=== PATIENT | female | born 1935 | race African-American/Black ===

== ENCOUNTER 2020-05-29 13:18 | Observation (INO) | payer OTHER ==
[2020-05-29 13:32] VITALS: BMI 39.1
--- NOTE | 2020-05-29 13:45 | PDOC ---
History of Present Illness - General Chief Complaint: Irregular Heart Beat Stated Complaint: Irregular Heart Beat Time Seen by Provider: 05/29/20 13:44 History Source: Patient Exam Limitations: No Limitations - History of Present Illness Initial Comments: 05/29/20 13:44 PCP: Mary Jo Cards: None HPI: 84 yo F pmh anemia, CAD, afib (not on AC), GERD, HTN, HLD, colon cancer s/p resection, glaucoma presenting from her EGD following elevated HR with apparent afib while in the OR (similar to 2016 episode of suspected afib). Denies any new symptoms today or symptoms after waking up from anesthesia. Endorses chronic chest pain and right scapular pain that has been diagnosed as arthritis treated with Tylenol at home. Reports years of shortness of breath with exertion / standing up that the family attributed at home to anemia or dehydration. Distance medical stress test pre 2016. Does not follow with cardiology, does not take AC. Patient denies chest pressure, SOB, diaphoresis, fever, chills, cough, abdominal pain, N/V/D/C, melena, hematochezia, dysuria, hematuria. PMHx of: Anemia, CAD, GERD, HTN, Hypercholesterolemia, Colon Ca (s/p resection), Glaucoma. PSHx of: Colon Resection, Cholestectomy, Hysterectomy, L- Rotator Cuff repair, Hemorrhoidectomy, B/L Cataract- (Lens Implants). Past History - Travel History Traveled outside of the country in the last 30 days: No Close contact w/someone who was outside of country & ill: No - Medical History Allergies/Adverse Reactions: Allergies Allergy/AdvReac Type Severity Reaction Status Date / Time CLYDE Inhibitors AdvReac Unknown PT DENIES Verified 05/29/20 10:04 ALLERGY Home Medications: Ambulatory Orders Amlodipine Besylate 10 mg PO DAILY 05/27/20 Hydralazine HCl 50 mg PO DAILY 05/27/20 Iron Carbonyl 65 mg PO DAILY 05/27/20 Pantoprazole Sodium [Protonix -] 20 mg PO DAILY 05/27/20 Prednisolone Acetate/Pf [Prednisolone Acet 1% Eye Drop] 5 ml OP BID 05/27/20 Brinzolamide/Brimonidine Tart [Simbrinza 1%-0.2% Eye Drops] 8 ml OP BID 05/28/20 Anemia: Yes (TAKING IRON) Asthma: No Cancer: Yes (COLON CA s/p resection) Cardiac Disorders: Yes (CAD,ASHD) CVA: No COPD: No CHF: No Dementia: No Diabetes: No GI Disorders: No (COLON POLYPS;COLON CA; ANTRAL ULCER; GERD) Disorders: No HTN: Yes Hypercholesterolemia: No Liver Disease: No Seizures: No Thyroid Disease: No - Surgical History Abdominal Surgery: Yes (COLON RESECTION) Appendectomy: No Cardiac Surgery: No Cholecystectomy: Yes (LAP) Lung Surgery: No Neurologic Surgery: No Orthopedic Surgery: Yes (LEFT ROTATOR CUFF REPAIR, LEFT KNEE REPLACMENET) - Reproductive History Is Patient Now?: No - Psycho-Social/Smoking History Smoking Status: Yes Smoking History: Former smoker Years of Tobacco Use: 15 Have you smoked in the past 12 months: No Number of Cigarettes Smoked Daily: 0 If you are a former smoker, when did you quit?: 1983 Information on smoking cessation initiated: No - Substance Abuse Hx (Audit-C & DAST Scrn) How often the patient has a drink containing alcohol: Never Score: In Men: 4 or > Positive; In Women: 3 or > Positive: 0 Screen Result (Pos requires Nsg. Audit-10AR): Negative In the last yr the pt used illegal drug/Rx for NonMed reason: No Score: Yes response is considered Positive: 0 Screen Result (Positive result requires Nsg. DAST-10): Negative Review of Systems - Review of Systems Able to Perform ROS?: Yes Is the patient limited Citizen Of [place] proficient: Yes Constitutional: No: Chills, Fever, Weakness HEENTM: No: Recent change in vision, Nose Pain, Throat Pain Respiratory: Yes: Shortness of Breath, SOB with Exertion. No: Cough, Wheezing, Productive cough Cardiac (ROS): Yes: Chest Pain. No: Edema, Irregular Heart Rate, Lightheadedness, Palpitations, Syncope, Chest Tightness ABD/GI: No: Constipated, Diarrhea, Nausea, Vomiting : No: Burning, Dysuria, Discharge, Frequency Musculoskeletal: No: Muscle Pain, Muscle Weakness Integumentary: No: Bruising, Pallor, Pruritus, Rash Neurological: No: Headache, Numbness, Tingling, Weakness Psychiatric: No: Stressors, Change in Appetite Endocrine: No: Increased Thirst, Increased Urine, Change in Weight Hematologic/Lymphatic: No: Anemia, Blood Clots, Easy Bleeding All Other Systems: Reviewed and Negative *Physical Exam - Vital Signs Last Vital Signs Temp Pulse Resp BP Pulse Ox 98.4 F 98 H 18 137/75 100 05/29/20 13:18 05/29/20 13:25 05/29/20 13:18 05/29/20 13:18 05/29/20 13:25 - Physical Exam 05/29/20 13:44 Vitals reviewed, AFVSS HR intermittently increases to 130s-140s for several seconds, irregularly irregular, ?pwaves. GEN: Well appearing, appears stated age, NAD, comfortable. AAOx3. HEENT: NCAT, EOMI, PERRL. Sclera anicteric, non-injected. No facial asymmetry. Moist mucous membranes. Normal voice. Trachea midline. CV: Irregularly irregular, rate 90s, S1/S2, no murmurs / rubs / gallops appreciated. LUNG: CTABL, normal work of breathing. No wheezes, rales, rhonchi. No cough. Speaking full sentences. GI: Soft, NTND, +BS, no guarding, no rebound. No masses. EXTREMITIES: 2+ distal pulses. No clubbing / cyanosis. Mild non-pitting edema bilaterally. No gross deformity in any extremity. SKIN: Warm, dry, no rashes appreciated, non-jaundiced. PSYCH: Normal mood and affect. Cooperative and appropriate. NEURO: CN grossly intact. Moving all extremities well. Normal strength and sensation grossly. ED Treatment Course - LABORATORY CBC & Chemistry Diagram: 05/29/20 15:15 05/29/20 15:15 Medical Decision Making - Medical Decision Making 05/29/20 13:45 84 yo F pmh anemia, CAD, afib (not on AC), GERD, HTN, HLD, colon cancer s/p resection, glaucoma presenting from her EGD following elevated HR with apparent afib while in the OR (similar to 2016 episode of suspected afib). History concerning for lost to follow up? 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 Exam notable for irregular HR, non-pitting LE edema bilaterally, otherwise unremarkable. Concerning for afib vs sinus arrhythmia vs SVT vs electrolyte derangement. - CBC, CMP, Cardiac Profile - EKG, CXR - Continuous cardiac monitoring 05/29/20 14:41 EKG 12:25: 95bpm sinus, premature atrial complexes, left axis deviation, no ST changes or concerning morphologies EKG 14:22: 93bpm unchanged from prior - repeated due to run of 130s-140s HR on the monitor with unclear P waves / baseline 05/29/20 16:58 Labs notable for baseline anemia Troponin 0.02 c/w prior Dispo: Tele Obs Discharge - Discharge Information Problems reviewed: Yes Clinical Impression/Diagnosis: Tachycardia, Shortness of breath Chest pain Qualifiers: Chest pain type: other chest pain Qualified Code(s): R07.89 - Other chest pain Condition: Guarded - Admission Yes - Follow up/Referral Referrals: Marsha Yanez MD [Primary Care Provider] - - Patient Discharge Instructions - Post Discharge Activity
--- NOTE | 2020-05-29 14:34 | PDOC ---
Documentation entered by Ivis Garcia SCRIBE, acting as scribe for Yoshi Morales MD. Yoshi Morales MD: This documentation has been prepared by the Jose huston Xhesika, SCRIBE, under my direction and personally reviewed by me in its entirety. I confirm that the documentation accurately reflects all work, treatment, procedures, and medical decision making performed by me. Attending Attestation - Resident Resident Name: Jose C Marie - ED Attending Attestation I have performed the following: I have examined & evaluated the patient, The case was reviewed & discussed with the resident, I agree w/resident's findings & plan, Exceptions are as noted - HPI HPI: 05/29/20 13:55 The patient is an 78 year old female with a significant past medical history of anemia, CAD, GERD, HTN, HLD, colon cancer s/p resection, glaucoma who presents to the ED sent by Dr. Singletary from Endoscopy for possible atrial fibrillation while in the OR. Per Dr. Singletary, pt had just finished EGD when she was found to have an irregular heart rhythm. Patient denies palpitations chest pain, chest pressure, SOB, diaphoresis, fever, chills, cough, abdominal pain, N/V/D. Pt denies any complaints currently but daughter notes that she has had intermittent chest pain and shortness of breath for several months. Pt had similar occurrence in 2016 when she was found to be tachycardic, but no evidence of afib was found on EKG at that time. Allergies: CLYDE Inhibitors PSHx of: Colon Resection, Cholestectomy, Hysterectomy, L- Rotator Cuff repair, Hemorrhoidectomy, B/L Cataract- (Lens Implants). - Physicial Exam PE: 05/29/20 14:37 "GENERAL: Awake, alert, and fully oriented, in no acute distress. HEAD: No signs of trauma EYES: PERRLA, EOMI, sclera anicteric, conjunctiva clear ENT: Auricles normal inspection, hearing grossly normal, nares patent, oropharynx clear without exudates. Moist mucosa NECK: Nontender, no stepoffs, Normal ROM, supple, no lymphadenopathy, JVD, or masses LUNGS: Breath sounds equal, clear to auscultation bilaterally. No wheezes, and no crackles HEART: Regular rate and rhythm, normal S1 and S2, no murmurs, rubs or gallops ABDOMEN: Soft, nontender, normoactive bowel sounds. No guarding, no rebound. No masses EXTREMITIES: Normal range of motion, no edema. No clubbing or cyanosis. No cords, erythema, or tenderness NEUROLOGICAL: Cranial nerves II through XII intact. 5/5 strength and sensation in all extremities, Normal speech, normal gait, normal cerebellar function SKIN: Warm, Dry, normal turgor, no rashes or lesions noted. - Medical Decision Making 05/29/20 14:37 84 F with abnormal heart rhythm today while getting EGD. No complaints at this time but reports intermittent CP/SOB for months. EKG shows sinus arrhythmia with frequent PACs. - Labs, trop, BNP - CXR Discharge - Discharge Information Problems reviewed: Yes Clinical Impression/Diagnosis: Tachycardia, Shortness of breath Chest pain Qualifiers: Chest pain type: other chest pain Qualified Code(s): R07.89 - Other chest pain Condition: Stable Disposition: HOME - Follow up/Referral - Patient Discharge Instructions - Post Discharge Activity
[2020-05-29 15:43] LABS: BASO % 0.5 % (0-2.0); EOS % 0.7 % (0-4.5); HEMATOCRIT 28.1 % (32.4-45.2); LYMPH % 10.5 % (8-40); MCH 26.5 pg (25.7-33.7); MCHC 32.1 g/dl (32.0-36.0); MEAN CELL VOLUME 82.6 fl (80-96); MEAN PLT VOLUME 7.5 fl (7.5-11.1); MONO % 13.1 % (3.8-10.2); NEUT % 75.2 % (42.8-82.8); PLATELET COUNT 337 K/MM3 (134-434); RDW 18.7 % (11.6-15.6); WHITE BLOOD COUNT 9.6 K/mm3 (4.0-10.0)
[2020-05-29 15:50] LABS: INR 1.11 (0.83-1.09); PROTHROMBIN TIME (PATIENT) 13.1 SEC (9.7-13.0)
[2020-05-29 15:52] LABS: ACTIVATED PTT 29.9 SECONDS (25.2-36.5)
[2020-05-29 16:17] LABS: ALK PHOS 95 U/L (45-117); ANION GAP 8 MMOL/L (8-16); BILIRUBIN,TOTAL 0.4 mg/dL (0.2-1); BLOOD UREA NITROGEN 17.1 mg/dL (7-18); CALCIUM 8.2 mg/dL (8.5-10.1); CHLORIDE 113 mmol/L (98-107); CO2 21 mmol/L (21-32); GLUCOSE,RANDOM 85 mg/dL (74-106); POTASSIUM 3.8 mmol/L (3.5-5.1); SGOT/AST 21 U/L (15-37); SGPT/ALT 17 U/L (13-61); SODIUM 142 mmol/L (136-145); TOT PROT 7.7 g/dl (6.4-8.2)
--- NOTE | 2020-05-29 17:55 | HP ---
CHIEF COMPLAINT:elevated HR during procedure PCP:Dr Yanez HISTORY OF PRESENT ILLNESS: 84 y.o female with PMH of HTN HLD ? afib (not on AC) CAD colon ca s/p resection anemia GERD presents to the ED due to elevated HR during endoscopy-.patient was undergoing an endoscopy when her HR was found to be in shavon 130's-140's so the procedure was stopped and she was sent to the ED, a similar episode happened in 2016 where her HR was found to be elevated however she did not have any outpatient cardiac f/u . she also complains of worsening dyspnea on exertion, decreased exercise tolerance and increased leg swelling she denies any fevers/cough symptoms ER course was notable for: (1)HR 90s-100's EKG notable for PACs; ; NSR (2)Hgb 9 (3) Recent Travel: denies PAST MEDICAL HISTORY: see above PAST SURGICAL HISTORY: colon resection; L knee replacement Social History: Smoking:denies Alcohol:denies Drugs: denies Allergies CLYDE Inhibitors Adverse Reaction (Unknown, Verified 05/29/20 10:04) PT DENIES ALLERGY PT DENIES ANY ALLERGY HOME MEDICATIONS: Home Medications Medication Instructions Recorded Amlodipine Besylate 10 mg PO DAILY 05/27/20 Hydralazine HCl 50 mg PO DAILY 05/27/20 Iron Carbonyl 65 mg PO DAILY 05/27/20 Pantoprazole Sodium [Protonix -] 20 mg PO DAILY 05/27/20 Prednisolone Acetate/Pf 5 ml OP BID 05/27/20 [Prednisolone Acet 1% Eye Drop] Brinzolamide/Brimonidine Tart 8 ml OP BID 05/28/20 [Simbrinza 1%-0.2% Eye Drops] REVIEW OF SYSTEMS CONSTITUTIONAL: Absent: fever, chills, diaphoresis, generalized weakness, malaise, loss of appetite, weight change HEENT: Absent: rhinorrhea, nasal congestion, throat pain, throat swelling, difficulty swallowing, mouth swelling, ear pain, eye pain, visual changes CARDIOVASCULAR: Present: palpitations Absent: chest pain, syncope, rregular heart rate, lightheadedness, peripheral edema RESPIRATORY: Absent: cough, shortness of breath, dyspnea with exertion, orthopnea, wheezing, stridor, hemoptysis GASTROINTESTINAL: Absent: abdominal pain, abdominal distension, nausea, vomiting, diarrhea, constipation, melena, hematochezia GENITOURINARY: Absent: dysuria, frequency, urgency, hesitancy, hematuria, flank pain, genital pain MUSCULOSKELETAL: Absent: myalgia, arthralgia, joint swelling, back pain, neck pain SKIN: Absent: rash, itching, pallor HEMATOLOGIC/IMMUNOLOGIC: Absent: easy bleeding, easy bruising, lymphadenopathy, frequent infections ENDOCRINE: Absent: unexplained weight gain, unexplained weight loss, heat intolerance, cold intolerance NEUROLOGIC: Absent: headache, focal weakness or paresthesias, dizziness, unsteady gait, seizure, mental status changes, bladder or bowel incontinence PSYCHIATRIC: Absent: anxiety, depression, suicidal or homicidal ideation, hallucinations. PHYSICAL EXAMINATION Vital Signs - 24 hr 05/29/20 05/29/20 13:18 13:25 Temperature 98.4 F Pulse Rate 98 H 98 H Respiratory 18 Rate Blood Pressure 137/75 O2 Sat by Pulse 100 100 Oximetry (%) GENERAL: Awake, alert, and fully oriented, in no acute distress. EYES: PEERLA ; EOMI; no scleral icterus NECK: no JVD; no lymphadenopathy. LUNGS: CTA B/l no rales, rhonchi or wheezing HEART: slightly tachycardic, regular normal S1 and S2 without murmur, rub or gallop. ABDOMEN: Soft, NT ND +BS in all 4 quadrants MUSCULOSKELETAL: Normal range of motion at all joints. No bony deformities or tenderness. No CVA tenderness. EXTREMITIES: warm; well-perfused no clubbing/cyanosis trace pedal edema b./l NEUROLOGICAL: Cranial nerves II-XII intact. Normal speech. Normal gait. PSYCHIATRIC: Cooperative. Good eye contact. Appropriate mood and affect. SKIN: Warm, dry, normal turgor, no rashes or lesions noted, normal capillary refill. Laboratory Results - last 24 hr 05/29/20 05/29/20 05/29/20 15:15 15:15 15:15 WBC 9.6 RBC 3.40 L Hgb 9.0 L Hct 28.1 L D MCV 82.6 MCH 26.5 D MCHC 32.1 RDW 18.7 H Plt Count 337 D MPV 7.5 D Absolute Neuts (auto) 7.2 Neutrophils % 75.2 Lymphocytes % 10.5 Monocytes % 13.1 H Eosinophils % 0.7 Basophils % 0.5 Nucleated RBC % 0 PT with INR 13.10 H INR 1.11 H PTT (Actin FS) 29.9 Sodium 142 Potassium 3.8 Chloride 113 H Carbon Dioxide 21 Anion Gap 8 BUN 17.1 Creatinine 1.0 Est GFR (CKD-EPI)AfAm 59.08 Est GFR (CKD-EPI)NonAf 50.97 Random Glucose 85 Calcium 8.2 L Total Bilirubin 0.4 AST 21 ALT 17 Alkaline Phosphatase 95 Creatine Kinase 76 Troponin I < 0.02 B-Natriuretic Peptide Total Protein 7.7 Albumin 3.0 L 05/29/20 15:15 WBC RBC Hgb Hct MCV MCH MCHC RDW Plt Count MPV Absolute Neuts (auto) Neutrophils % Lymphocytes % Monocytes % Eosinophils % Basophils % Nucleated RBC % PT with INR INR PTT (Actin FS) Sodium Potassium Chloride Carbon Dioxide Anion Gap BUN Creatinine Est GFR (CKD-EPI)AfAm Est GFR (CKD-EPI)NonAf Random Glucose Calcium Total Bilirubin AST ALT Alkaline Phosphatase Creatine Kinase Troponin I B-Natriuretic Peptide 173.4 Total Protein Albumin ASSESSMENT/PLAN: 84 y.o female with PMH of HTN HLD ? afib (not on AC) CAD colon ca s/p resection anemia GERD presents to the ED due to elevated HR during endoscopy- #? afib patient now in sinus rhythm with HR well controlled in the 80's-90's -cardio consult -will start metoprolol 25 BID -tele monitoring -TSH -echo -will need AC as CHADsVASC is 4; discuss with cardio #HTN will c/w amlodipine -hold hydralazine -start metoprolol 25 BID -monitor hemodynamics #Anemia Hgb on arrival was 9 -known history of anemia on iron pills -daughter says this is around patients baseline -monitor for signs of bleeding #GERD PPI daily f/e/n not on fluids monitor electrolytes soidum diet dispo tele obs dvt ppx: heparin sq Family Medical History Family History: Denies Problem List - Problem (1) Tachycardia Code(s): R00.0 - TACHYCARDIA, UNSPECIFIED (2) Anemia Code(s): D64.9 - ANEMIA, UNSPECIFIED (3) HTN (hypertension) Code(s): I10 - ESSENTIAL (PRIMARY) HYPERTENSION (4) History of colon cancer Code(s): Z85.038 - PERSONAL HISTORY OF MALIGNANT NEOPLASM OF LARGE INTESTINE Visit type - Medication Review Med list reviewed for High Risk Meds patients 65 and older: Yes - Emergency Visit Emergency Visit: Yes ED Registration Date: 05/29/20 Care time: The patient presented to the Emergency Department on the above date and was hospitalized for further evaluation of their emergent condition. - New Patient This patient is new to me today: Yes Date on this admission: 05/29/20 - Critical Care Critical Care patient: No ATTENDING PHYSICIAN STATEMENT I saw and evaluated the patient. I reviewed the resident's note and discussed the case with the resident. I agree with the resident's findings and plan as documented. SUBJECTIVE: OBJECTIVE: ASSESSMENT AND PLAN:
--- NOTE | 2020-05-29 18:07 | PN ---
Teaching Attending Note Name of Resident: Mandie Madsen ATTENDING PHYSICIAN STATEMENT I saw and evaluated the patient. I reviewed the resident's note and discussed the case with the resident. I agree with the resident's findings and plan as documented. SUBJECTIVE: pt seen and examined at bedside, denies current complains OBJECTIVE: Last Vital Signs Temp Pulse Resp BP Pulse Ox 98.4 F 98 H 18 137/75 100 05/29/20 13:18 05/29/20 13:25 05/29/20 13:18 05/29/20 13:18 05/29/20 13:25 GENERAL: Awake, alert, and fully oriented, in no acute distress. HEAD: Normal with no signs of trauma. EYES: Pupils equal, round and reactive to light, sclera anicteric, conjunctiva clear. LUNGS: Breath sounds equal, clear to auscultation bilaterally. No wheezes, and no crackles. No accessory muscle use. HEART: Irregular, normal S1 and S2 ABDOMEN: Soft, nontender, not distended MUSCULOSKELETAL: Normal range of motion at all joints. No bony deformities or tenderness. No CVA tenderness. UPPER EXTREMITIES: 2+ pulses, warm, well-perfused. No cyanosis. No clubbing. No peripheral edema. LOWER EXTREMITIES: 2+ pulses, warm, well-perfused. No calf tenderness. No peripheral edema. NEUROLOGICAL: Cranial nerves II-XII intact. Normal speech. CBCD WBC 9.6 K/mm3 (4.0-10.0) 05/29/20 15:15 RBC 3.40 M/mm3 (3.60-5.2) L 05/29/20 15:15 Hgb 9.0 GM/dL (10.7-15.3) L 05/29/20 15:15 Hct 28.1 % (32.4-45.2) L D 05/29/20 15:15 MCV 82.6 fl (80-96) 05/29/20 15:15 MCHC 32.1 g/dl (32.0-36.0) 05/29/20 15:15 RDW 18.7 % (11.6-15.6) H 05/29/20 15:15 Plt Count 337 K/MM3 (134-434) D 05/29/20 15:15 MPV 7.5 fl (7.5-11.1) D 05/29/20 15:15 CMP Sodium 142 mmol/L (136-145) 05/29/20 15:15 Potassium 3.8 mmol/L (3.5-5.1) 05/29/20 15:15 Chloride 113 mmol/L (98-107) H 05/29/20 15:15 Carbon Dioxide 21 mmol/L (21-32) 05/29/20 15:15 Anion Gap 8 MMOL/L (8-16) 05/29/20 15:15 BUN 17.1 mg/dL (7-18) 05/29/20 15:15 Creatinine 1.0 mg/dL (0.55-1.3) 05/29/20 15:15 Random Glucose 85 mg/dL (74-106) 05/29/20 15:15 Calcium 8.2 mg/dL (8.5-10.1) L 05/29/20 15:15 Total Bilirubin 0.4 mg/dL (0.2-1) 05/29/20 15:15 AST 21 U/L (15-37) 05/29/20 15:15 ALT 17 U/L (13-61) 05/29/20 15:15 Alkaline Phosphatase 95 U/L (45-117) 05/29/20 15:15 Total Protein 7.7 g/dl (6.4-8.2) 05/29/20 15:15 Albumin 3.0 g/dl (3.4-5.0) L 05/29/20 15:15 CARDIAC ENZYMES Creatine Kinase 76 U/L (26-192) 05/29/20 15:15 Troponin I < 0.02 ng/ml (0.00-0.05) 05/29/20 15:15 Home Medications Medication Instructions Recorded Amlodipine Besylate 10 mg PO DAILY 05/27/20 Hydralazine HCl 50 mg PO DAILY 05/27/20 Iron Carbonyl 65 mg PO DAILY 05/27/20 Pantoprazole Sodium [Protonix -] 20 mg PO DAILY 05/27/20 Prednisolone Acetate/Pf 5 ml OP BID 05/27/20 [Prednisolone Acet 1% Eye Drop] Brinzolamide/Brimonidine Tart 8 ml OP BID 05/28/20 [Simbrinza 1%-0.2% Eye Drops] ASSESSMENT AND PLAN: 78 year old lady with Mhx of anemia, CAD, GERD, HTN, HLD, colon cancer s/p resec tion (last colonoscopy reported normal, following with GI), glaucoma, sent from endoscopy suite for presumed Afib with RVR # Tachyarrythmia - resolved, probably aggravated by stress, - started on metoprolol 50mg bid, observation + tele monitor - EKG reviewed, sinus tachy with premature atrial beats, partial RBBB, LVH - reported worsening exertional dyspnea, orthopnea over last period - cardiology consult - TSH - hold hydralazine, c/w amlodipine glaucoma (hold prednisolone drop as it increases eye pressure, c/w simbrinza) HTN HLD GERD h/o colon ca chronic constipation anemia DVT prophylaxis
--- NOTE | 2020-05-29 20:22 | CON.CARD ---
Consult Consult Specialty:: Cardiology Reason for Consultation:: new onset AF - History of Present Illness History of Present Illness: 84 y.o female with PMH of HTN HLD ? afib (not on AC) CAD colon ca s/p resection anemia GERD presents to the ED due to elevated HR during endoscopy-.patient was undergoing an endoscopy when her HR was found to be in shavon 130's-140's so the procedure was stopped and she was sent to the ED, a similar episode happened in 2015 where her HR was found to be elevated however she did not have any outpatient cardiac f/u . - History Source History Provided By: Medical Record - Past Medical History Cardio/Vascular: Yes: CAD (angina in shavon past), HTN Gastrointestinal: Yes: Cancer (colon cancer, underwent colectomy and 6 months chemotherapy 2001), GERD, Peptic Ulcer Disease (Gastric ulcer 2012), Other (SBO 01/13 managed conservatively 02/03) ...: No Musculoskeletal: Yes: Osteoarthritis, Other (Spinal stenosis, sciatica, broken right wrist 01/13) Dermatology: Yes: Other (benign skin lesion excisions) Additional Medical History: Glaucoma - Past Surgical History Past Surgical History: Yes: Cataract Removal, Cholecystectomy (laparoscopic 2001), Colectomy (right hemicolectomy for colon cancer 2001), Colonoscopy, Hysterectomy (TAHBSO for fibroids), Joint Replacement (left TKR), Upper Endoscopy - Alcohol/Substance Use Hx Alcohol Use: No History of Substance Use: reports: None - Smoking History Smoking history: Former smoker Have you smoked in the past 12 months: No Aproximately how many cigarettes per day: 0 If you are a former smoker, when did you quit?: 1983 - Social History Usual Living Arrangement: With Child ADL: Family Assistance Home Medications - Allergies Allergies/Adverse Reactions: Allergies Allergy/AdvReac Type Severity Reaction Status Date / Time CLYDE Inhibitors AdvReac Unknown PT DENIES Verified 05/29/20 10:04 ALLERGY - Home Medications Home Medications: Ambulatory Orders Amlodipine Besylate 10 mg PO DAILY 05/27/20 Iron Carbonyl 65 mg PO DAILY 05/27/20 Pantoprazole Sodium [Protonix -] 20 mg PO DAILY 05/27/20 Prednisolone Acetate/Pf [Prednisolone Acet 1% Eye Drop] 5 ml OP BID 05/27/20 Brinzolamide/Brimonidine Tart [Simbrinza 1%-0.2% Eye Drops] 8 ml OP BID 05/28/20 Family Medical History Family Hx Respiratory Disorders: Father ( COPD age 86) Family Hx Gastrointestinal Disorder: Mother ( age 54 of ruptured appendix) Review of Systems - Review of Systems Constitutional: reports: No Symptoms Eyes: reports: No Symptoms HENT: reports: No Symptoms Neck: reports: No Symptoms Cardiovascular: reports: No Symptoms Gastrointestinal: reports: No Symptoms Genitourinary: reports: No Symptoms Breasts: reports: No Symptoms Reported Musculoskeletal: reports: No Symptoms Integumentary: reports: No Symptoms Neurological: reports: No Symptoms Endocrine: reports: No Symptoms Hematology/Lymphatic: reports: No Symptoms Psychiatric: reports: No Symptoms Vital Signs: Vital Signs Temperature 98.4 F 05/29/20 13:18 Pulse Rate 90 05/29/20 19:31 Respiratory Rate 20 05/29/20 19:31 Blood Pressure 136/72 05/29/20 19:31 O2 Sat by Pulse Oximetry (%) 98 05/29/20 19:31 Constitutional: Yes: Well Nourished, No Distress, Calm Eyes: Yes: WNL, Conjunctiva Clear, EOM Intact HENT: Yes: WNL, Atraumatic, Normocephalic Neck: Yes: WNL, Supple, Trachea Midline Respiratory: Yes: WNL, Regular, CTA Bilaterally Gastrointestinal: Yes: WNL, Normal Bowel Sounds Renal/: Yes: WNL Cardiovascular: Yes: WNL, Regular Rate and Rhythm Musculoskeletal: Yes: WNL Extremities: Yes: WNL Integumentary: Yes: WNL Neurological: Yes: WNL, Alert, Oriented ...Motor Strength: WNL Psychiatric: Yes: WNL, Alert, Oriented - Other Data Labs, Other Data: CBC, BMP 05/29/20 15:15 05/29/20 15:15 INR, PTT INR 1.11 (0.83-1.09) H 05/29/20 15:15 Troponin, BNP 05/29/20 05/29/20 15:15 15:15 Troponin I < 0.02 B-Natriuretic Peptide 173.4 Troponin, BNP 05/29/20 05/29/20 15:15 15:15 Troponin I < 0.02 B-Natriuretic Peptide 173.4 Imaging - Results Chest X-ray: Image Reviewed (no i/e) EKG: Image Reviewed ([facility] pacs) Problem List - Problems (1) Chest pain Code(s): R07.9 - CHEST PAIN, UNSPECIFIED Qualifiers: Chest pain type: other chest pain Qualified Code(s): R07.89 - Other chest pain; R07.8 - Other chest pain (2) Shortness of breath Code(s): R06.02 - SHORTNESS OF BREATH (3) Tachycardia Code(s): R00.0 - TACHYCARDIA, UNSPECIFIED (4) Abrasion of knee, right Code(s): S80.211A - ABRASION, RIGHT KNEE, INITIAL ENCOUNTER (5) Anemia Code(s): D64.9 - ANEMIA, UNSPECIFIED (6) DVT prophylaxis Code(s): GFR6722 - (7) Distal radial fracture Code(s): S52.509A - UNSP FRACTURE OF THE LOWER END OF UNSP RADIUS, INIT (8) Duodenitis Code(s): K29.80 - DUODENITIS WITHOUT BLEEDING (9) Fall Code(s): W19.XXXA - UNSPECIFIED FALL, INITIAL ENCOUNTER (10) GERD (gastroesophageal reflux disease) Code(s): K21.9 - GASTRO-ESOPHAGEAL REFLUX DISEASE WITHOUT ESOPHAGITIS (11) HTN (hypertension) Code(s): I10 - ESSENTIAL (PRIMARY) HYPERTENSION (12) History of colon cancer Code(s): Z85.038 - PERSONAL HISTORY OF MALIGNANT NEOPLASM OF LARGE INTESTINE (13) History of colon polyps Code(s): Z86.010 - PERSONAL HISTORY OF COLONIC POLYPS (14) History of peptic ulcer disease Code(s): Z87.11 - PERSONAL HISTORY OF PEPTIC ULCER DISEASE (15) Hypercholesteremia Code(s): E78.0 - PURE HYPERCHOLESTEROLEMIA * DO NOT USE * (16) Injury Code(s): T14.90 - INJURY, UNSPECIFIED * DO NOT USE * (17) Leg pain Code(s): M79.606 - PAIN IN LEG, UNSPECIFIED (18) Leukoplakia Code(s): VOR6954 - (19) New onset atrial fibrillation Code(s): I48.91 - UNSPECIFIED ATRIAL FIBRILLATION (20) Shingles Code(s): B02.9 - ZOSTER WITHOUT COMPLICATIONS (21) Vesicular lesion Code(s): R23.8 - OTHER SKIN CHANGES Assessment/Plan 84 y.o female with PMH of HTN HLD ? afib (not on AC) CAD colon ca s/p resection anemia GERD presents to the ED due to elevated HR during endoscopy-.patient was undergoing an endoscopy when her HR was found to be in shavon 130's-140's so the procedure was stopped and she was sent to the ED, a similar episode happened in 2016 where her HR was found to be elevated however she did not have any outpatient cardiac f/u . PAF in NSR No evidence of CHF - BNP WNL Plan; Telemetry ECHO serial EKGS DVT PLX ChadsVasc2 score at least 4 - would benefit from AC Would start AC if cleared by GI- occult GI bleed/anemia. At present time AC risks outweighs the benefits. Agree with BB IF EF normal will change Amlodipine to Cardizem.
[2020-05-29] MEDS ORDERED: metoPROLOL SUCCINATE 25 MG TAB.SR.24H (FP) PO SCH (22:00)
[2020-05-29] MEDS ORDERED: METOPROLOL TARTRATE 25 MG TABLET (FP) ONE (22:05)
[2020-05-29] MEDS ORDERED: HEPARIN NA (PORCINE) 5,000 UNITS/ML 1ML VIAL ONE (22:06)
[2020-05-29] MEDS: HEPARIN NA (PORCINE) 5,000 UNITS/ML 1ML VIAL SQ SCH (22:09)
[2020-05-29] MEDS: METOPROLOL TARTRATE 25 MG TABLET (FP) PO SCH (22:09)
[2020-05-30] MEDS: HEPARIN NA (PORCINE) 5,000 UNITS/ML 1ML VIAL SQ SCH ×3 (06:15→22:03)
--- NOTE | 2020-05-30 06:30 | PN ---
Progress Note (short form) - Note Progress Note: Coverage for Dr. Edi Lambert Chief Complaint: Events noted, notes reviewed, resting in bed, reporting vague chest heaviness/discomfort which is not exacerbated by movements or respiration, denies dyspnea, denies palpitations History of Present Illness: Seen and examined on telemetry. Events noted, notes reviewed, resting in bed, reporting vague chest heaviness/discomfort which is not exacerbated by movements or respiration, denies dyspnea, denies palpitations Medications: Current Medications Generic Name Dose Route Start Last Admin Trade Name Freq PRN Reason Stop Dose Admin Amlodipine Besylate 10 mg 05/30/20 10:00 Norvasc - PO DAILY RASHEL Heparin Sodium (Porcine) 5,000 unit 05/29/20 22:00 05/30/20 06:15 Heparin - SQ 5,000 unit TID RASHEL Administration Metoprolol Tartrate 25 mg 05/29/20 22:00 05/29/20 22:09 Lopressor - PO 25 mg BID RASHEL Administration Pantoprazole Sodium 20 mg 05/30/20 10:00 Protonix - PO DAILY COUNTS INCLUDE 234 BEDS AT THE [facility] Review of Systems Constitutional: denies Chills or Fever Respiratory: denies: Dyspnea Cardiovascular: As noted above Gastrointestinal: denies Nausea, Vomiting, Diarrhea, Constipation or Abdominal Discomfort Genitourinary: No Symptoms Reported Musculoskeletal: No Symptoms Reported Vital Signs: Last Vital Signs Temp Pulse Resp BP Pulse Ox 98.5 F 72 18 124/54 L 97 05/30/20 02:00 05/30/20 02:00 05/30/20 02:00 05/30/20 02:00 05/30/20 02:00 Intake & Output 05/27/20 05/28/20 05/29/20 05/30/20 23:59 23:59 23:59 23:59 Weight 250 lb Neck: Supple Negative JVD Respiratory: Clear to A&P Bilaterally Cardiovascular: S1 S2 Irregularly irregular Gastrointestinal: Soft Benign Normal Bowel Sounds Ext: Negative Edema Labs: CBC, BMP 05/30/20 06:15 05/30/20 06:15 CBC, BMP 05/29/20 15:15 05/29/20 15:15 Troponin, BNP 05/29/20 05/29/20 15:15 15:15 Troponin I < 0.02 B-Natriuretic Peptide 173.4 Hepatic Panel Total Bilirubin 0.4 mg/dL (0.2-1) 05/29/20 15:15 AST 21 U/L (15-37) 05/29/20 15:15 ALT 17 U/L (13-61) 05/29/20 15:15 Alkaline Phosphatase 95 U/L (45-117) 05/29/20 15:15 Albumin 3.0 g/dl (3.4-5.0) L 05/29/20 15:15 INR, PTT INR 1.11 (0.83-1.09) H 05/29/20 15:15 Assessment/Plan ASSESSMENT: 1. Paroxysmal atrial fibrillation [id number] score of 6 currently on no anticoagulation therapy related to anemia evaluation of which is currently in progress 2. Coronary artery disease angina pectoris, chest pain syndrome clinically atypical for angina pectoris 3. Diastolic left ventricular dysfunction with clinical class 0 [place] [employer] classification of ventricular failure 4. Hypertensive cardiovascular disease 5. Hypercholesterolemia 6. History of gastroesophageal reflux disease 7. History of colon carcinoma post resection 8. Anemia gastrointestinal blood loss is suspected, evaluation of which is currently in progress PLAN: 1. Continue Lopressor therapy and dose titration as needed 2. Ideally patient should be on CLYDE inhibitor or angiotensin receptor suzy therapy, patient has a history of allergy- to be reviewed 3. Continue Norvasc therapy 4. Ideally patient should be anticoagulated considering the above-noted CH [id number] score of 6, to be deferred at this point pending completion of evaluation of the above-noted anemia- as an alternative to anticoagulation therapy consideration for left atrial appendage closure device insertion 5. If recurrent atrial fibrillation is noted recommend initiation of antiarrhy thmic therapy; Betapace provided LVEF is normal 6. Echocardiography study for evaluation of left ventricular systolic function/valvular function Yolette Sanderson MD
[2020-05-30 08:20] LABS: BASO % 1.8 % (0-2.0); EOS % 2.5 % (0-4.5); HEMATOCRIT 27.3 % (32.4-45.2); HEMOGLOBIN 8.7 GM/dL (10.7-15.3); LYMPH % 17.7 % (8-40); MCH 26.6 pg (25.7-33.7); MCHC 31.8 g/dl (32.0-36.0); MEAN CELL VOLUME 83.6 fl (80-96); MEAN PLT VOLUME 8.6 fl (7.5-11.1); MONO % 14.1 % (3.8-10.2); NEUT % 63.9 % (42.8-82.8); PLATELET COUNT 321 K/MM3 (134-434); RBC 3.27 M/mm3 (3.60-5.2); RDW 18.9 % (11.6-15.6); WHITE BLOOD COUNT 7.6 K/mm3 (4.0-10.0)
[2020-05-30 08:35] LABS: ALBUMIN 2.8 g/dl (3.4-5.0); BILIRUBIN,TOTAL 0.5 mg/dL (0.2-1); BLOOD UREA NITROGEN 17.1 mg/dL (7-18); CALCIUM 8.6 mg/dL (8.5-10.1); MAGNESIUM 2.4 mg/dL (1.8-2.4); PHOSPHOROUS 3.5 mg/dL (2.5-4.9); POTASSIUM 4.4 mmol/L (3.5-5.1); TOT PROT 7.2 g/dl (6.4-8.2)
[2020-05-30] MEDS: METOPROLOL TARTRATE 25 MG TABLET (FP) PO SCH (09:13)
[2020-05-30] MEDS: PANTOPRAZOLE 20 MG TABLET PO SCH (09:13)
[2020-05-30] MEDS: amLODIPine BESYLATE 10 MG TABLET (FP) PO SCH (09:13)
--- NOTE | 2020-05-30 10:16 | EKG ---
Test Reason : Blood Pressure : / mmHG Vent. Rate : 079 BPM Atrial Rate : 079 BPM P-R Int : 178 ms QRS Dur : 094 ms QT Int : 398 ms P-R-T Axes : 082 -30 013 degrees QTc Int : 456 ms SINUS RHYTHM WITH PREMATURE ATRIAL COMPLEXES LEFT AXIS DEVIATION INCOMPLETE RIGHT BUNDLE BRANCH BLOCK MINIMAL VOLTAGE CRITERIA FOR LVH, MAY BE NORMAL VARIANT ABNORMAL ECG WHEN COMPARED WITH ECG OF 29-MAY-2020 14:22, INCOMPLETE RIGHT BUNDLE BRANCH BLOCK IS NOW PRESENT Confirmed by IAM RODRIGUEZ MD ([id number]) on 05/30/2020 10:16:02 AM Referred By: Confirmed By:IAM RODRIGUEZ MD
--- NOTE | 2020-05-30 10:20 | EKG ---
Test Reason : Blood Pressure : / mmHG Vent. Rate : 093 BPM Atrial Rate : 093 BPM P-R Int : 168 ms QRS Dur : 088 ms QT Int : 378 ms P-R-T Axes : 077 -30 020 degrees QTc Int : 469 ms POOR DATA QUALITY, INTERPRETATION MAY BE ADVERSELY AFFECTED SINUS RHYTHM WITH PREMATURE ATRIAL COMPLEXES LEFT AXIS DEVIATION MINIMAL VOLTAGE CRITERIA FOR LVH, MAY BE NORMAL VARIANT ABNORMAL ECG WHEN COMPARED WITH ECG OF 29-MAY-2020 12:25, NO SIGNIFICANT CHANGE WAS FOUND Confirmed by IAM RODRIGUEZ MD ([id number]) on 05/30/2020 10:19:51 AM Referred By: Confirmed By:IAM RODRIGUEZ MD
--- NOTE | 2020-05-30 11:18 | PN ---
Physical Exam: SUBJECTIVE: Patient seen this morning, reports she has been having some midsternal pressure that is relieved with tylenol. No overnight events OBJECTIVE: Vital Signs Period Temp Pulse Resp BP Sys/Jensen Pulse Ox Last 24 Hr 98.4 F-98.5 F 71-98 18-20 124-149/54-82 96-100 GENERAL: The patient is awake, alert, and fully oriented, in no acute distress. HEAD: Normal with no signs of trauma. EYES: PERRL, extraocular movements intact, ENT: moist mucous membranes. LUNGS: Breath sounds equal, clear to auscultation bilaterally, no wheezes, no crackles, no accessory muscle use. HEART: Regular rate and rhythm, S1, S2 without murmur, rub or gallop. ABDOMEN: Soft, nontender, nondistended, normoactive bowel sounds, EXTREMITIES: no edema SKIN: Warm, dry, normal turgor, no rashes or lesions noted CBC, BMP 05/30/20 06:15 05/30/20 06:15 Active Medications Generic Name Dose Route Start Last Admin Trade Name Zaidq PRN Reason Stop Dose Admin Amlodipine Besylate 10 mg 05/30/20 10:00 05/30/20 09:13 Norvasc - PO 10 mg DAILY RASHEL Administration Heparin Sodium (Porcine) 5,000 unit 05/29/20 22:00 05/30/20 06:15 Heparin - SQ 5,000 unit TID RASHEL Administration Metoprolol Tartrate 50 mg 05/30/20 11:07 Lopressor - PO BID RASHEL Pantoprazole Sodium 20 mg 05/30/20 10:00 05/30/20 09:13 Protonix - PO 20 mg DAILY RASHEL Administration ASSESSMENT/PLAN: Patient is a 84 y/o female with a history of HTN HLD ? afib (not on AC) CAD colon ca s/p resection anemia GERD who is admitted for tachycardia. #tachycardia - hx of paroxysmal afib, CHADSC 6, cannot r/o vagal nerve stimulation during patients EGD - cardiology reccomending AC, to be discussed with patients outpatient GI to discuss risks and benefits - metoprolol tartrate 50 mg bid - f/u ECHO on Monday #hx HTN - continue amlodipine 10mg #anemia - patient on iron suplementation at home - f/u iron pannel, vitamin B12, folate #HX GERD - continue pantoprazole 20 mg daily #DVT ppx - heparin sq tid Dispo: f/u ECHO Visit type - Emergency Visit Emergency Visit: No - New Patient This patient is new to me today: Yes Date on this admission: 05/30/20 - Critical Care Critical Care patient: No - Medication Review Med list reviewed for High Risk Meds patients 65 and older: Yes ATTENDING PHYSICIAN STATEMENT I saw and evaluated the patient. I reviewed the resident's note and discussed the case with the resident. I agree with the resident's findings and plan as documented. SUBJECTIVE: OBJECTIVE: ASSESSMENT AND PLAN:
--- NOTE | 2020-05-30 13:47 | PN ---
Teaching Attending Note Name of Resident: Janene Meredith ATTENDING PHYSICIAN STATEMENT I saw and evaluated the patient. I reviewed the resident's note and discussed the case with the resident. I agree with the resident's findings and plan as documented. SUBJECTIVE: Feeling well, no chest discomfort or palpitations currently. No fever/chills/cough/sputum/hemoptysis. OBJECTIVE: Afebrile, Hemodynamically Stable. Last Vital Signs Temp Pulse Resp BP Pulse Ox 98.4 F 77 18 149/82 98 05/30/20 06:00 05/30/20 06:00 05/30/20 06:00 05/30/20 06:00 05/30/20 06:00 HEENT - Atraumatic, normocephalic Heart - S1, S2, RRR Lungs - clear to auscultation Abdomen - High BMI. soft, non-tender. Bowel Sounds normal. Extremities - no edema, no calf tenderness Neuro - AAO x 3. Tone/Power normal. Laboratory Results - last 24 hr 05/29/20 05/29/20 05/29/20 15:15 15:15 15:15 WBC 9.6 RBC 3.40 L Hgb 9.0 L Hct 28.1 L D MCV 82.6 MCH 26.5 D MCHC 32.1 RDW 18.7 H Plt Count 337 D MPV 7.5 D Absolute Neuts (auto) 7.2 Neutrophils % 75.2 Lymphocytes % 10.5 Monocytes % 13.1 H Eosinophils % 0.7 Basophils % 0.5 Nucleated RBC % 0 PT with INR 13.10 H INR 1.11 H PTT (Actin FS) 29.9 Sodium 142 Potassium 3.8 Chloride 113 H Carbon Dioxide 21 Anion Gap 8 BUN 17.1 Creatinine 1.0 Est GFR (CKD-EPI)AfAm 59.08 Est GFR (CKD-EPI)NonAf 50.97 Random Glucose 85 Calcium 8.2 L Phosphorus Magnesium Total Bilirubin 0.4 AST 21 ALT 17 Alkaline Phosphatase 95 Creatine Kinase 76 Troponin I < 0.02 B-Natriuretic Peptide Total Protein 7.7 Albumin 3.0 L TSH 05/29/20 05/30/20 05/30/20 15:15 06:15 06:15 WBC 7.6 RBC 3.27 L Hgb 8.7 L Hct 27.3 L MCV 83.6 MCH 26.6 MCHC 31.8 L RDW 18.9 H Plt Count 321 MPV 8.6 D Absolute Neuts (auto) 4.9 Neutrophils % 63.9 Lymphocytes % 17.7 D Monocytes % 14.1 H Eosinophils % 2.5 D Basophils % 1.8 D Nucleated RBC % 0 PT with INR INR PTT (Actin FS) Sodium 142 Potassium 4.4 Chloride 112 H Carbon Dioxide 26 Anion Gap 5 L BUN 17.1 Creatinine 1.0 Est GFR (CKD-EPI)AfAm 59.08 Est GFR (CKD-EPI)NonAf 50.97 Random Glucose 73 L Calcium 8.6 Phosphorus 3.5 Magnesium 2.4 Total Bilirubin 0.5 AST 22 ALT 16 Alkaline Phosphatase 85 Creatine Kinase Troponin I B-Natriuretic Peptide 173.4 Total Protein 7.2 Albumin 2.8 L TSH 1.47 Current Medications Generic Name Dose Route Start Last Admin Trade Name Freq PRN Reason Stop Dose Admin Amlodipine Besylate 10 mg 05/30/20 10:00 05/30/20 09:13 Norvasc - PO 10 mg DAILY RASHEL Administration Heparin Sodium (Porcine) 5,000 unit 05/29/20 22:00 05/30/20 06:15 Heparin - SQ 5,000 unit TID RASHEL Administration Metoprolol Tartrate 50 mg 05/30/20 11:07 Lopressor - PO BID RASHEL Pantoprazole Sodium 20 mg 05/30/20 10:00 05/30/20 09:13 Protonix - PO 20 mg DAILY RASHEL Administration Home Medications Medication Instructions Recorded Amlodipine Besylate 10 mg PO DAILY 05/27/20 Iron Carbonyl 65 mg PO DAILY 05/27/20 Pantoprazole Sodium [Protonix -] 20 mg PO DAILY 05/27/20 Prednisolone Acetate/Pf 5 ml OP BID 05/27/20 [Prednisolone Acet 1% Eye Drop] Brinzolamide/Brimonidine Tart 8 ml OP BID 05/28/20 [Simbrinza 1%-0.2% Eye Drops] ASSESSMENT AND PLAN: 78 year old female with history of Anemia, CAD, GERD, HTN, HLD, chronic diastolic CHF, colon cancer s/p resection (last colonoscopy reported normal, following with GI), glaucoma, sent from endoscopy suite for tachycardia of 130s- 140s during EGD. 1. Tachyarrythmia secondary to possible vagal nerve stimulation during EGD Questionable Hx of PAF, now in SR. No recorded AF on this occasion. ECG - SR x 2. No acute changes. TropI neg. No telemonitoring events overnight. TSH wnl Metoprolol started. Cardiology consulted - for consideration of AC once anemia work-up is completed by GI (Hx Colon Ca). Echo requested by Cardio - to be done on Friday 06/01 2. HTN - Metoprolol added to Norvasc. 3. GERD - PPI 4. Chronic Anemia, Normocytic - being investigated by GI. On Iron supplementation. Will send Iron/Ferritin/B12/Folate levels. DVT Px - Heparin SQ
[2020-05-30] MEDS: METOPROLOL TARTRATE 50 MG TABLET (FP) PO SCH (22:04)
[2020-05-31] MEDS: HEPARIN NA (PORCINE) 5,000 UNITS/ML 1ML VIAL SQ SCH ×3 (06:14→21:24)
--- NOTE | 2020-05-31 06:26 | PN ---
Progress Note (short form) - Note Progress Note: Coverage for Dr. Edi Lambert Chief Complaint: Events noted, notes reviewed, resting in bed, denies any recurrent chest discomfort, denies dyspnea, denies palpitations, sinus rhythm is maintained History of Present Illness: Seen and examined on telemetry. Events noted, notes reviewed, resting in bed, denies any recurrent chest discomfort, denies dyspnea, denies palpitations, sinus rhythm is maintained Medications: Current Medications Generic Name Dose Route Start Last Admin Trade Name Kathie PRN Reason Stop Dose Admin Amlodipine Besylate 10 mg 05/30/20 10:00 05/30/20 09:13 Norvasc - PO 10 mg DAILY RASHEL Administration Heparin Sodium (Porcine) 5,000 unit 05/29/20 22:00 05/31/20 06:14 Heparin - SQ 5,000 unit TID RASHEL Administration Metoprolol Tartrate 50 mg 05/30/20 11:07 05/30/20 22:04 Lopressor - PO 50 mg BID RASHEL Administration Pantoprazole Sodium 20 mg 05/30/20 10:00 05/30/20 09:13 Protonix - PO 20 mg DAILY RASHEL Administration Review of Systems Constitutional: denies Chills or Fever Respiratory: denies: Dyspnea Cardiovascular: As noted above Gastrointestinal: denies Nausea, Vomiting, Diarrhea, Constipation or Abdominal Discomfort Genitourinary: No Symptoms Reported Musculoskeletal: No Symptoms Reported Vital Signs: Last Vital Signs Temp Pulse Resp BP Pulse Ox 98.2 F 60 18 120/55 L 98 05/31/20 02:00 05/31/20 02:00 05/31/20 02:00 05/31/20 02:00 05/30/20 22:00 Intake & Output 05/28/20 05/29/20 05/30/20 05/31/20 23:59 23:59 23:59 23:59 Intake Total 120 Balance 120 Weight 250 lb Neck: Supple Negative JVD Respiratory: Clear to A&P Bilaterally Cardiovascular: S1 S2 Regular rate rhythm Gastrointestinal: Soft Benign Normal Bowel Sounds Ext: Negative Edema Labs: CBC, BMP 05/31/20 06:45 05/31/20 06:48 CBC, BMP 05/30/20 06:15 05/30/20 06:15 Hepatic Panel Total Bilirubin 0.5 mg/dL (0.2-1) 05/30/20 06:15 AST 22 U/L (15-37) 05/30/20 06:15 ALT 16 U/L (13-61) 05/30/20 06:15 Alkaline Phosphatase 85 U/L (45-117) 05/30/20 06:15 Albumin 2.8 g/dl (3.4-5.0) L 05/30/20 06:15 INR, PTT INR 1.11 (0.83-1.09) H 05/29/20 15:15 Assessment/Plan ASSESSMENT: 1. Paroxysmal atrial fibrillation [id number] score of 6 currently on no anticoagulation therapy related to anemia evaluation of which is currently in progress 2. Coronary artery disease angina pectoris, chest pain syndrome clinically atypical for angina pectoris 3. Diastolic left ventricular dysfunction with clinical class 0 [place] [employer] classification of ventricular failure 4. Hypertensive cardiovascular disease 5. Hypercholesterolemia 6. History of gastroesophageal reflux disease 7. History of colon carcinoma post resection 8. Anemia gastrointestinal blood loss is suspected, evaluation of which is currently in progress PLAN: 1. Continue Lopressor therapy and dose titration as needed 2. Ideally patient should be on CLYDE inhibitor or angiotensin receptor suzy therapy, patient has a history of allergy- to be reviewed 3. Continue Norvasc therapy 4. Ideally patient should be anticoagulated considering the above-noted [id number] score of 6, to be deferred at this point pending completion of evaluation of the above-noted anemia- as an alternative to anticoagulation therapy consideration for left atrial appendage closure device insertion- outpatient evaluation 5. If recurrent atrial fibrillation is noted recommend initiation of antiarrhythmic therapy; Betapace provided LVEF is normal 6. Echocardiography study for evaluation of left ventricular systolic function/valvular function Yolette Sanderson MD
[2020-05-31 08:00] LABS: HEMATOCRIT 28.9 % (32.4-45.2); HEMOGLOBIN 9.1 GM/dL (10.7-15.3); MCH 26.4 pg (25.7-33.7); MCHC 31.5 g/dl (32.0-36.0); MEAN CELL VOLUME 83.6 fl (80-96); MEAN PLT VOLUME 8.4 fl (7.5-11.1); PLATELET COUNT 331 K/MM3 (134-434); RBC 3.46 M/mm3 (3.60-5.2); RDW 19.2 % (11.6-15.6); WHITE BLOOD COUNT 7.9 K/mm3 (4.0-10.0)
[2020-05-31 08:46] LABS: ALBUMIN 2.9 g/dl (3.4-5.0); BILIRUBIN,TOTAL 0.4 mg/dL (0.2-1); BLOOD UREA NITROGEN 16.7 mg/dL (7-18); CALCIUM 8.4 mg/dL (8.5-10.1); CREATININE 1.1 mg/dL (0.55-1.3); POTASSIUM 4.4 mmol/L (3.5-5.1); TOT PROT 7.7 g/dl (6.4-8.2)
[2020-05-31] MEDS: METOPROLOL TARTRATE 50 MG TABLET (FP) PO SCH ×2 (10:02→21:24)
[2020-05-31] MEDS: amLODIPine BESYLATE 10 MG TABLET (FP) PO SCH (10:02)
[2020-05-31] MEDS: PANTOPRAZOLE 20 MG TABLET PO SCH (10:02)
--- NOTE | 2020-05-31 12:06 | EKG ---
Test Reason : Blood Pressure : / mmHG Vent. Rate : 070 BPM Atrial Rate : 070 BPM P-R Int : 182 ms QRS Dur : 100 ms QT Int : 408 ms P-R-T Axes : 038 -24 023 degrees QTc Int : 440 ms SINUS RHYTHM WITH PREMATURE SUPRAVENTRICULAR COMPLEXES OTHERWISE NORMAL ECG WHEN COMPARED WITH ECG OF 29-MAY-2020 20:49, INCOMPLETE RIGHT BUNDLE BRANCH BLOCK IS NO LONGER PRESENT Confirmed by IAM RODRIGUEZ MD ([id number]) on 05/31/2020 12:06:14 PM Referred By: Confirmed By:IAM RODRIGUEZ MD
--- NOTE | 2020-05-31 12:23 | PN ---
Progress Note (short form) - Note Progress Note: SUBJECTIVE: Feeling well, no further chest discomfort or palpitations. No fever/chills/cough/sputum/hemoptysis. OBJECTIVE: Afebrile, Hemodynamically Stable. Last Vital Signs Temp Pulse Resp BP Pulse Ox 97.6 F 73 20 152/65 96 05/31/20 08:58 05/31/20 08:58 05/31/20 08:58 05/31/20 08:58 05/31/20 08:58 Heart - S1, S2, RRR Lungs - clear to auscultation Abdomen - High BMI. soft, non-tender. Bowel Sounds normal. Extremities - no edema, no calf tenderness Neuro - AAO x 3. Tone/Power normal. Laboratory Results - last 24 hr 05/29/20 05/31/20 05/31/20 18:10 06:45 06:48 WBC 7.9 RBC 3.46 L Hgb 9.1 L Hct 28.9 L MCV 83.6 MCH 26.4 MCHC 31.5 L RDW 19.2 H Plt Count 331 MPV 8.4 Sodium 140 Potassium 4.4 Chloride 108 H Carbon Dioxide 26 Anion Gap 6 L BUN 16.7 Creatinine 1.1 Est GFR (CKD-EPI)AfAm 52.65 Est GFR (CKD-EPI)NonAf 45.42 Random Glucose 76 Calcium 8.4 L Iron 29 L TIBC 352 Iron Saturation 8 L Unsaturated IBC 323 H Ferritin 18.8 Total Bilirubin 0.4 AST 25 ALT 17 Alkaline Phosphatase 90 Total Protein 7.7 Albumin 2.9 L Vitamin B12 187 L Serum Folate 9 COVID-19 (VIVIANA) Not detected Current Medications Generic Name Dose Route Start Last Admin Trade Name Freq PRN Reason Stop Dose Admin Amlodipine Besylate 10 mg 05/30/20 10:05/31/20 10:02 Norvasc - PO 10 mg DAILY RASHEL Administration Heparin Sodium (Porcine) 5,000 unit 05/29/20 22:00 05/31/20 06:14 Heparin - SQ 5,000 unit TID RASHEL Administration Metoprolol Tartrate 50 mg 05/30/20 11:07 05/31/20 10:02 Lopressor - PO 50 mg BID RASHEL Administration Pantoprazole Sodium 20 mg 05/30/20 10:00 05/31/20 10:02 Protonix - PO 20 mg DAILY RASHEL Administration Home Medications Medication Instructions Recorded Amlodipine Besylate 10 mg PO DAILY 05/27/20 Iron Carbonyl 65 mg PO DAILY 05/27/20 Pantoprazole Sodium [Protonix -] 20 mg PO DAILY 05/27/20 Prednisolone Acetate/Pf 5 ml OP BID 05/27/20 [Prednisolone Acet 1% Eye Drop] Brinzolamide/Brimonidine Tart 8 ml OP BID 05/28/20 [Simbrinza 1%-0.2% Eye Drops] ASSESSMENT AND PLAN: 78 year old female with history of Anemia, CAD, GERD, HTN, HLD, chronic diastolic CHF, colon cancer s/p resection (last colonoscopy reported normal, following with GI), glaucoma, sent from endoscopy suite for tachycardia of 130s- 140s during EGD. 1. Tachyarrythmia secondary to possible vagal nerve stimulation during EGD Questionable Hx of PAF, now in SR. No recorded AF on this occasion. ECG - SR x 2. No acute changes. TropI neg. No telemonitoring events. TSH wnl Metoprolol started. Cardiology consulted - for consideration of AC once anemia work-up is completed by GI (Hx Colon Ca). Echo requested by Cardio - to be done on Friday 06/01 Further consideration of AC by Cardiology as out-patient once GI work-up complete. 2. HTN - Metoprolol added to Norvasc. 3. GERD - PPI 4. Chronic Anemia, Normocytic - multifactorial, being investigated by GI. Iron Sat 8% - On Iron supplementation. . B12 level 187 - will start supplementation. DVT Px - Heparin SQ Visit type - Emergency Visit Emergency Visit: Yes ED Registration Date: 05/29/20 Care time: The patient presented to the Emergency Department on the above date and was hospitalized for further evaluation of their emergent condition. - New Patient This patient is new to me today: No - Critical Care Critical Care patient: No - Discharge Referral Referred to [facility] No - Medication Review Med list reviewed for High Risk Meds patients 65 and older: Yes
[2020-05-31] MEDS: CYANOCOBALAMIN 1,000 MCG TABLET (FP) PO SCH (14:06)
[2020-06-01] MEDS: HEPARIN NA (PORCINE) 5,000 UNITS/ML 1ML VIAL SQ SCH ×2 (06:22→13:27)
[2020-06-01] MEDS: PANTOPRAZOLE 20 MG TABLET PO SCH (09:03)
[2020-06-01] MEDS: CYANOCOBALAMIN 1,000 MCG TABLET (FP) PO SCH (09:03)
[2020-06-01] MEDS: METOPROLOL TARTRATE 50 MG TABLET (FP) PO SCH (09:03)
[2020-06-01] MEDS: amLODIPine BESYLATE 10 MG TABLET (FP) PO SCH (09:03)
--- NOTE | 2020-06-01 12:34 | PN ---
Progress Note, Physician History of Present Illness: 84 y.o female with PMH of HTN HLD ? afib (not on AC) CAD colon ca s/p resection anemia GERD presents to the ED due to elevated HR during endoscopy-.patient was undergoing an endoscopy when her HR was found to be in shavon 130's-140's so the procedure was stopped and she was sent to the ED, a similar episode happened in 2016 where her HR was found to be elevated however she did not have any ou tpatient cardiac f/u . - Current Medication List Current Medications: Active Medications Amlodipine Besylate (Norvasc -) 10 mg PO DAILY [facility] Last Admin: 06/01/20 09:03 Dose: 10 mg Documented by: Cyanocobalamin (Vitamin B12 -) 1,000 mcg PO DAILY [facility] Last Admin: 06/01/20 09:03 Dose: 1,000 mcg Documented by: Heparin Sodium (Porcine) (Heparin -) 5,000 unit SQ TID [facility] Last Admin: 06/01/20 06:22 Dose: 5,000 unit Documented by: Metoprolol Tartrate (Lopressor -) 50 mg PO BID [facility] Last Admin: 06/01/20 09:03 Dose: 50 mg Documented by: Pantoprazole Sodium (Protonix -) 20 mg PO DAILY [facility] Last Admin: 06/01/20 09:03 Dose: 20 mg Documented by: - Objective Vital Signs: Vital Signs Temperature 98.5 F 06/01/20 09:17 Pulse Rate 63 06/01/20 09:17 Respiratory Rate 18 06/01/20 09:17 Blood Pressure 146/59 L 06/01/20 09:17 O2 Sat by Pulse Oximetry (%) 93 L 06/01/20 10:00 Eyes: Yes: WNL, Conjunctiva Clear, EOM Intact HENT: Yes: WNL, Atraumatic, Normocephalic Neck: Yes: WNL, Supple, Trachea Midline Cardiovascular: Yes: WNL, Regular Rate and Rhythm Respiratory: Yes: WNL, Regular, CTA Bilaterally Gastrointestinal: Yes: WNL, Normal Bowel Sounds Genitourinary: Yes: WNL Musculoskeletal: Yes: WNL Extremities: Yes: WNL Edema: No Integumentary: Yes: WNL Neurological: Yes: WNL, Alert, Oriented ...Motor Strength: WNL Psychiatric: Yes: WNL Labs: CBC, BMP 05/31/20 06:45 05/31/20 06:48 INR, PTT INR 1.11 (0.83-1.09) H 05/29/20 15:15 Problem List - Problems (1) Chest pain Code(s): R07.9 - CHEST PAIN, UNSPECIFIED Qualifiers: Chest pain type: other chest pain Qualified Code(s): R07.89 - Other chest pain; R07.8 - Other chest pain (2) Shortness of breath Code(s): R06.02 - SHORTNESS OF BREATH (3) Tachycardia Code(s): R00.0 - TACHYCARDIA, UNSPECIFIED (4) Abrasion of knee, right Code(s): S80.211A - ABRASION, RIGHT KNEE, INITIAL ENCOUNTER (5) Anemia Code(s): D64.9 - ANEMIA, UNSPECIFIED (6) DVT prophylaxis Code(s): ENW6491 - (7) Distal radial fracture Code(s): S52.509A - UNSP FRACTURE OF THE LOWER END OF UNSP RADIUS, INIT (8) Duodenitis Code(s): K29.80 - DUODENITIS WITHOUT BLEEDING (9) Fall Code(s): W19.XXXA - UNSPECIFIED FALL, INITIAL ENCOUNTER (10) GERD (gastroesophageal reflux disease) Code(s): K21.9 - GASTRO-ESOPHAGEAL REFLUX DISEASE WITHOUT ESOPHAGITIS (11) HTN (hypertension) Code(s): I10 - ESSENTIAL (PRIMARY) HYPERTENSION (12) History of colon cancer Code(s): Z85.038 - PERSONAL HISTORY OF MALIGNANT NEOPLASM OF LARGE INTESTINE (13) History of colon polyps Code(s): Z86.010 - PERSONAL HISTORY OF COLONIC POLYPS (14) History of peptic ulcer disease Code(s): Z87.11 - PERSONAL HISTORY OF PEPTIC ULCER DISEASE (15) Hypercholesteremia Code(s): E78.0 - PURE HYPERCHOLESTEROLEMIA * DO NOT USE * (16) Injury Code(s): T14.90 - INJURY, UNSPECIFIED * DO NOT USE * (17) Leg pain Code(s): M79.606 - PAIN IN LEG, UNSPECIFIED (18) Leukoplakia Code(s): OSN5362 - (19) New onset atrial fibrillation Code(s): I48.91 - UNSPECIFIED ATRIAL FIBRILLATION (20) Shingles Code(s): B02.9 - ZOSTER WITHOUT COMPLICATIONS (21) Vesicular lesion Code(s): R23.8 - OTHER SKIN CHANGES Assessment/Plan 1. Paroxysmal atrial fibrillation in the setting of endoscopy [id number] score of 6 currently on no anticoagulation therapy related to anemia evaluation of which is currently in progress 2. Coronary artery disease angina pectoris, chest pain syndrome clinically atypical for angina pectoris 3. Diastolic left ventricular dysfunction with clinical class 0 [employer] classification of ventricular failure 4. Hypertensive cardiovascular disease 5. Hypercholesterolemia 6. History of gastroesophageal reflux disease 7. History of colon carcinoma post resection 8. Anemia gastrointestinal blood loss is suspected, evaluation of which is currently in progress PLAN: 1. Continue Lopressor therapy and dose titration as needed 2. Ideally patient should be on CLYDE inhibitor or angiotensin receptor suzy therapy, patient has a history of allergy- to be reviewed 3. Continue Norvasc therapy 4. Ideally patient should be anticoagulated considering the above-noted CHA2 TC2SPwe score of 6, to be deferred at this point pending completion of evaluation of the above-noted anemia- as an alternative to anticoagulation therapy consideration for left atrial appendage closure device insertion 5. If recurrent atrial fibrillation is noted recommend initiation of antiarrhythmic therapy; Betapace provided LVEF is normal 6. Echocardiography nl EF LAE - mild 4.3 cm Telemetry negative for PAF Will f/u as the outpatient for additionsal w/u as described above. Small risks of CVA , being off AC if AF reoccurs d/w the patient,
--- NOTE | 2020-06-01 12:43 | PN ---
Teaching Attending Note Name of Resident: Uziel Gracia ATTENDING PHYSICIAN STATEMENT I saw and evaluated the patient. I reviewed the resident's note and discussed the case with the resident. I agree with the resident's findings and plan as documented. SUBJECTIVE: Feeling well, no further chest discomfort or palpitations currently. No fever/chills/cough/sputum/hemoptysis. OBJECTIVE: Afebrile, Hemodynamically Stable. Last Vital Signs Temp Pulse Resp BP Pulse Ox 98.5 F 63 18 146/59 L 93 L 06/01/20 09:17 06/01/20 09:17 06/01/20 09:17 06/01/20 09:17 06/01/20 10:00 Heart - S1, S2, RRR Lungs - clear to auscultation Abdomen - High BMI. soft, non-tender. Bowel Sounds normal. Extremities - no edema, no calf tenderness Neuro - AAO x 3. Tone/Power normal. Current Medications Generic Name Dose Route Start Last Admin Trade Name Freq PRN Reason Stop Dose Admin Amlodipine Besylate 10 mg 05/30/20 10:00 06/01/20 09:03 Norvasc - PO 10 mg DAILY RASHEL Administration Cyanocobalamin 1,000 mcg 05/31/20 14:00 06/01/20 09:03 Vitamin B12 - PO 1,000 mcg DAILY RASHEL Administration Heparin Sodium (Porcine) 5,000 unit 05/29/20 22:00 06/01/20 06:22 Heparin - SQ 5,000 unit TID RASHEL Administration Metoprolol Tartrate 50 mg 05/30/20 11:07 06/01/20 09:03 Lopressor - PO 50 mg BID RASHEL Administration Pantoprazole Sodium 20 mg 05/30/20 10:00 06/01/20 09:03 Protonix - PO 20 mg DAILY RASHEL Administration Home Medications Medication Instructions Recorded Amlodipine Besylate 10 mg PO DAILY 05/27/20 Iron Carbonyl 65 mg PO DAILY 05/27/20 Pantoprazole Sodium [Protonix -] 20 mg PO DAILY 05/27/20 Prednisolone Acetate/Pf 5 ml OP BID 05/27/20 [Prednisolone Acet 1% Eye Drop] Brinzolamide/Brimonidine Tart 8 ml OP BID 05/28/20 [Simbrinza 1%-0.2% Eye Drops] ASSESSMENT AND PLAN: 78 year old female with history of Anemia, CAD, GERD, HTN, HLD, chronic diastolic CHF, colon cancer s/p resection (last colonoscopy reported normal, following with GI), glaucoma, sent from endoscopy suite for tachycardia of 130s- 140s during EGD. 1. Tachyarrythmia secondary to possible vagal nerve stimulation during EGD Questionable Hx of PAF, now in SR. No recorded AF on this occasion. ECG - SR x 2. No acute changes. TropI neg. No telemonitoring events. TSH wnl Metoprolol started. Cardiology consulted - for consideration of AC once anemia work-up is completed by GI (Hx Colon Ca). Echo requested by Cardio - done today - if essentially normal, patient can be discharged with Cardio out-patient follow up. Further consideration of AC by Cardiology as out-patient once GI work-up complete. 2. HTN - Metoprolol added to Norvasc. 3. GERD - PPI 4. Chronic Anemia, Normocytic - multifactorial, being investigated by GI. Iron Deficiency - Iron Sat 8% - On Iron supplementation. B12 deficiency - B12 level 187 - started on supplementation. DVT Px - Heparin SQ If Echo within acceptable limits, medically cleared for discharge with Cardio and GI follow ups.
[2020-06-01 14:30] VITALS: BP 136/62; PULSE 55; TEMP 98.6
--- NOTE | 2020-06-01 15:00 | ECHO ---
Name: SANJAY MENDOZA Exam:Adult Echocardiogram Study Date: 06/01/2020 10:33 AM Age: 84 yrs Reason For Study: EF Height: 67 in Weight: 250 lb BSA: 2.2 m2 MMode/2D Measurements & Calculations RVDd: 4.2 cm Ao root diam: 3.4 cm IVSd: 0.99 cm LA dimension: 4.2 cm LVIDd: 5.5 cm ACS: 2.1 cm LVIDs: 3.5 cm LVPWd: 1.1 cm EDV(Teich): 145.7 ml LVOT diam: 2.1 cm ESV(Teich): 52.5 ml LAV (MOD-bp): 80.0 ml TAPSE: 3.0 cm RV S Salvatore: 16.2 cm/sec Doppler Measurements & Calculations MV E max salvatore: 84.1 cm/sec Ao V2 max: 152.0 cm/sec MV A max salvatore: 104.9 cm/sec Ao max P.2 mmHg MV E/A: 0.80 Ao V2 mean: 94.0 cm/sec MV dec time: 0.29 sec Ao mean P.2 mmHg Ao V2 VTI: 28.5 cm JUDITH(I,D): 3.1 cm2 AI P1/2t: 1537 msec JUDITH(V,D): 3.0 cm2 AI max salvatore: 355.6 cm/sec LV V1 max P.7 mmHg AI max P.6 mmHg LV V1 mean P.3 mmHg AI dec slope: 67.8 cm/sec2 LV V1 max: 129.6 cm/sec LV V1 mean: 84.3 cm/sec LV V1 VTI: 24.9 cm SV(LVOT): 87.1 ml TR max salvatore: 267.4 cm/sec TR max P.6 mmHg PA V2 max: 109.9 cm/sec Med Peak E' Salvatore: 4.1 cm/sec PA max P.8 mmHg Med E/e': 20.5 PA acc slope: 819.3 cm/sec2 Lat Peak E' Salvatore: 6.7 cm/sec PA acc time: 0.12 sec Lat E/e': 12.5 PA pr(Accel): 26.7 mmHg Procedure TDS due to body habitus. Patient scanned supine/sitting up. Left Ventricle The left ventricle is normal in size. Left ventricular systolic function is normal. Ejection Fraction = 60- 65%. LV diastology reveals impaired relaxation with elevated filling pressure. No regional wall motio n abnormalities noted. Right Ventricle The right ventricle is normal size. The right ventricular systolic function is normal. Atria The left atrium is mildly dilated. Right atrial size is normal. Mitral Valve The mitral valve is normal in structure and function. There is mild mitral regurgitation. Tricuspid Valve The tricuspid valve is normal in structure and function. There is mild tricuspid regurgitation. PASP is at least 32 mmHg if RA pressure is assumed 3 mmHg. Aortic Valve There is mild aortic sclerosis.;. Mild aortic regurgitation. Pulmonic Valve The pulmonic valve is not well visualized. Great Vessels The aortic root is normal size. Mildly dilated ascending aorta. Pericardium/Pleura There is no pericardial effusion. Interpretation Summary TDS due to body habitus. Patient scanned supine/sitting up. The left ventricle is normal in size. Left ventricular systolic function is normal. No regional wall motion abnormalities noted. Ejection Fraction = 60-65%. LV diastology reveals impaired relaxation with elevated filling pressure The left atrium is mildly dilated. There is mild mitral regurgitation. There is mild tricuspid regurgitation. PASP is at least 32 mmHg if RA pressure is assumed 3 mmHg There is mild aortic sclerosis. Mild aortic regurgitation. The aortic root is normal size. Mildly dilated ascending aorta.(3.8 cm) There is no pericardial effusion. Robb Caldera MD 06/01/2020 03:00 PM
--- NOTE | 2020-06-01 15:21 | DS ---
Physical Exam: SUBJECTIVE: Patient seen and examined. No OBJECTIVE: Vital Signs Period Temp Pulse Resp BP Sys/Jensen Pulse Ox Last 24 Hr 97.8 F-99.4 F 55-74 18-20 125-146/45-62 92-98 PHYSICAL EXAM GENERAL: The patient is awake, alert, and fully oriented, in no acute distress. HEAD: Normal with no signs of trauma. EYES: PERRL, extraocular movements intact, sclera anicteric, conjunctiva clear. ENT: Ears normal, nares patent, oropharynx clear without exudates, moist mucous membranes. NECK: Trachea midline, full range of motion, supple. LUNGS: Breath sounds equal, clear to auscultation bilaterally, no wheezes, no crackles, no accessory muscle use. HEART: Regular rate and rhythm, S1, S2 without murmur, rub or gallop. ABDOMEN: Soft, nontender, nondistended, normoactive bowel sounds, no guarding, no rebound, no hepatosplenomegaly, no masses. EXTREMITIES: 2+ pulses, warm, well-perfused, no edema. NEUROLOGICAL: Cranial nerves II through XII grossly intact. Normal speech, gait not observed. PSYCH: Normal mood, normal affect. SKIN: Warm, dry, normal turgor, no rashes or lesions noted. LABS HOSPITAL COURSE: Date of Admission:05/29/20 Pt presented from EGD with tachyarrythmia, and questionable history of paroxy smal A fib no in sinus rhythm. There were no recorded atrial fib events on this occasion, and no tele events during patients stay. Trops negative x3, TSH WNL. Pt was started on Lopressor 50mg BID. Pt echo shows mild aortic enlargement. Pt with CHADSVASc of 6, but will f/u outpatient once GI completes workup for anemia. Pt was continued on home Protonix 20mg QD for GERD. Pt found to have multifactorial anemia (iron deficiency already on iron supplementation), and B12 deficiency started on supplementation. Pt to follow up with family law paralegal (Dr. Lambert), CT surgery (Dr. Michaels), GI (Dr. Singletary) and PCP. Date of Discharge: 06/01/20 Minutes to complete discharge: 36 Discharge Summary Problems reviewed: Yes Reason For Visit: SOB,TACHYCARDIA,CHEST PAIN Current Active Problems Chest pain (Acute) Shortness of breath (Acute) Tachycardia (Acute) Condition: Stable - Instructions Diet, Activity, Other Instructions: You were admitted to the hospital for having a fast heart rate while getting your EGD. You had an echocardiogram of your heart,it did not show any major valvular abnormalities. You are anemic with a low red blood cell count and were being worked up for a possible bleed within your gut. You were found to have a moderate to high risk for a blood clot in the future. Please continue to follow up with your wardrobe technician to determine the cause of your anemia, and determine if it is appropriate to start a blood thinner if possible. Please continue to take your Norvasc 10mg once a day. Please continue to take your Protonix 20mg once a day. Please START taking Lopressor 50mg twice a day. Please START taking Vitamin B12 supplements once a day for one month. Please follow up with your family law paralegal, Dr. Lambert, within 1 week to discuss the need to be put on a blood thinner . Please follow up with your primary care physician, Dr. Yanez, within 1 week for general health maintenance. Please follow up with Dr Singletary within one to two weeks Please follow up with the cardiothoracic surgeon Dr Michaels as one of the blood vessels in your chest region (your ascending aorta) is mildly enlarged If you have new, worsening, or concerning symptoms please call 911 or return to the ED Referrals: Facundo Singletary MD [Staff Physician] - Marsha Yanez MD [Primary Care Provider] - Babatunde Lambert MD [Staff Physician] - Rohit Michaels MD [Staff Physician] - Disposition: HOME - Home Medications Comprehensive Discharge Medication List: Ambulatory Orders Amlodipine Besylate 10 mg PO DAILY 05/27/20 Iron Carbonyl 65 mg PO DAILY 05/27/20 Pantoprazole Sodium [Protonix -] 20 mg PO DAILY 05/27/20 Prednisolone Acetate/Pf [Prednisolone Acet 1% Eye Drop] 5 ml OP BID 05/27/20 Brinzolamide/Brimonidine Tart [Simbrinza 1%-0.2% Eye Drops] 8 ml OP BID 05/28/20 Cyanocobalamin [Vitamin B12 -] 1,000 mcg PO DAILY #30 tablet 06/01/20 Metoprolol Tartrate [Lopressor -] 50 mg PO BID #60 tablet 06/01/20 This patient is new to me today: No Emergency Visit: Yes ED Registration Date: 05/29/20 Care time: The patient presented to the Emergency Department on the above date and was hospitalized for further evaluation of their emergent condition. Critical Care patient: No - Discharge Referral Referred to [facility] No ATTENDING PHYSICIAN STATEMENT I saw and evaluated the patient. I reviewed the resident's note and discussed the case with the resident. I agree with the resident's findings and plan as documented. SUBJECTIVE: OBJECTIVE: ASSESSMENT AND PLAN:
== END 2020-06-01 17:13 | disposition home or self-care (01) ==
LOC: JER 13:18 → JERBED 15:38 → J4S 22:52
PROVIDERS: ADMIT Student in an Organized Health Care Education/Training Program
PROC: 3E023GC Introduction of Other Therapeutic Substance into Muscle, Percutaneous Approach (ICD-10-PCS; principal; 2020-05-29)
DX: I25.10 Atherosclerotic heart disease of native coronary artery without angina pectoris (principal); R00.0 Tachycardia, unspecified; I50.32 Chronic diastolic (congestive) heart failure; R07.89 Other chest pain; R06.02 Shortness of breath; E78.5 Hyperlipidemia, unspecified; I48.91 Unspecified atrial fibrillation; K21.9 Gastro-esophageal reflux disease without esophagitis; D64.9 Anemia, unspecified; R07.9 Chest pain, unspecified; S80.211A Abrasion, right knee, initial encounter; Z88.8 Allergy status to other drugs, medicaments and biological substances; S52.509A Unspecified fracture of the lower end of unspecified radius, initial encounter for closed fracture; K29.80 Duodenitis without bleeding; W18.39XA Other fall on same level, initial encounter; Y93.89 Activity, other specified; Y92.89 Other specified places as the place of occurrence of the external cause; Z85.038 Personal history of other malignant neoplasm of large intestine; Z87.11 Personal history of peptic ulcer disease; M79.606 Pain in leg, unspecified; B02.9 Zoster without complications; R23.8 Other skin changes; Z96.652 Presence of left artificial knee joint; Z29.9 Encounter for prophylactic measures, unspecified; E66.01 Morbid (severe) obesity due to excess calories; Z68.39 Body mass index [BMI] 39.0-39.9, adult; Z87.891 Personal history of nicotine dependence; I11.0 Hypertensive heart disease with heart failure
CPT/HCPCS: 36415; 71045-TC-FY; 80053; 82550; 82607; 82728; 82746; 83540; 83550; 83735; 83880; 84100; 84443; 84484; 85025; 85027; 85610; 85730; 93005; 93010; 93306-TC; 96372; 99285-25; G0378; J1644; U0003

== ENCOUNTER 2021-01-19 17:33 | Inpatient (IN) | payer OTHER ==
[2021-01-19 20:10] LABS: BASO % 0.9 % (0-2.0); HEMATOCRIT 23.3 % (32.4-45.2); LYMPH % 11.3 % (8-40); MCH 20.1 pg (25.7-33.7); MCHC 28.7 g/dl (32.0-36.0); MEAN PLT VOLUME 8.4 fl (7.5-11.1); MONO % 15.2 % (3.8-10.2); NEUT % 70.6 % (42.8-82.8); PLATELET COUNT 350 K/MM3 (134-434); RBC 3.33 M/mm3 (3.60-5.2); RDW 21.2 % (11.6-15.6)
[2021-01-19 20:20] LABS: INR 1.13 (0.83-1.09); PROTHROMBIN TIME (PATIENT) 13.9 SEC (9.7-13.0)
[2021-01-19 20:22] LABS: ACTIVATED PTT 26.5 SECONDS (25.2-36.5)
[2021-01-19 20:36] LABS: CALCIUM 8.4 mg/dL (8.5-10.1)
[2021-01-19 20:37] LABS: ALBUMIN 3.1 g/dl (3.4-5.0); BLOOD UREA NITROGEN 20.5 mg/dL (7-18)
[2021-01-19 20:40] LABS: CREATININE 1.2 mg/dL (0.55-1.3)
[2021-01-19 20:41] LABS: BILIRUBIN,TOTAL 0.8 mg/dL (0.2-1); TOT PROT 7.8 g/dl (6.4-8.2)
[2021-01-19 20:59] LABS: HEMOGLOBIN 6.7 GM/dL (10.7-15.3)
[2021-01-19 23:39] LABS: ANISOCYTOSIS 2+; MACROCYTOSIS 0; PLATELET ESTIMATE NORMAL; TARGET CELLS 1+
[2021-01-20] MEDS ORDERED: PANTOPRAZOLE SODIUM 40 MG in SODIUM CHLORIDE 100 ML IVPB ONE (00:03)
[2021-01-20] MEDS ORDERED: PANTOPRAZOLE SODIUM 40 MG VIAL ONE (00:57)
[2021-01-20] MEDS ORDERED: FLU VACCINE (FLULAVAL) PF 60 MCG/0.5 ML SYRINGE 2020-2021 IM ONE (02:57)
[2021-01-20 03:23] VITALS: BMI 42.0
[2021-01-20] MEDS ORDERED: PT OWN MED DRAWER 7, Y5N ONE (09:18)
[2021-01-20] MEDS: amLODIPine BESYLATE 10 MG TABLET (FP) PO SCH (09:27)
[2021-01-20] MEDS: PANTOPRAZOLE SODIUM 40 MG VIAL IVPUSH SCH ×2 (09:27→21:22)
[2021-01-20] MEDS: METOPROLOL TARTRATE 25 MG TABLET (FP) PO SCH (09:27)
[2021-01-20] MEDS: CYANOCOBALAMIN 1,000 MCG TABLET (FP) PO SCH (09:27)
[2021-01-20] MEDS: prednisoLONE ACETATE 1% OPHTH SUSP 5 ML BOTTLE OU SCH ×2 (09:29→21:19)
[2021-01-20] MEDS: BRIMONIDINE TARTRATE 0.2% OPHTHALMIC 5 ML BOTTLE OU SCH ×3 (09:30→21:19)
[2021-01-20] MEDS ORDERED: POLYETHYLENE GLYCOL 3350 119 GM BTL PO SCH (10:00)
[2021-01-20 10:42] LABS: BASO % 0.9 % (0-2.0); EOS % 1.8 % (0-4.5); HEMATOCRIT 25.4 % (32.4-45.2); HEMOGLOBIN 7.7 GM/dL (10.7-15.3); LYMPH % 15.5 % (8-40); MCH 21.8 pg (25.7-33.7); MCHC 30.5 g/dl (32.0-36.0); MEAN CELL VOLUME 71.6 fl (80-96); MEAN PLT VOLUME 8.2 fl (7.5-11.1); MONO % 20.2 % (3.8-10.2); NEUT % 61.6 % (42.8-82.8); PLATELET COUNT 313 K/MM3 (134-434); RBC 3.55 M/mm3 (3.60-5.2); RDW 21.3 % (11.6-15.6); WHITE BLOOD COUNT 7.4 K/mm3 (4.0-10.0)
[2021-01-20 11:03] LABS: CHLORIDE 112 mmol/L (98-107); SODIUM 141 mmol/L (136-145)
[2021-01-20 11:07] LABS: CALCIUM 8.1 mg/dL (8.5-10.1)
[2021-01-20 11:08] LABS: ALBUMIN 2.8 g/dl (3.4-5.0); ANION GAP 6 MMOL/L (8-16); BLOOD UREA NITROGEN 16.6 mg/dL (7-18); CO2 23 mmol/L (21-32); GLUCOSE,RANDOM 77 mg/dL (74-106); MAGNESIUM 2.6 mg/dL (1.8-2.4)
[2021-01-20 11:11] LABS: CREATININE 1.1 mg/dL (0.55-1.3); PHOSPHOROUS 2.9 mg/dL (2.5-4.9); SGOT/AST 24 U/L (15-37); SGPT/ALT 18 U/L (13-61)
[2021-01-20 11:12] LABS: BILIRUBIN,TOTAL 1.1 mg/dL (0.2-1)
[2021-01-20 11:13] LABS: ALK PHOS 71 U/L (45-117)
[2021-01-20 11:48] LABS: URINE APPEARANCE CLEAR; URINE BILIRUBIN NEGATIVE (NEGATIVE); URINE COLOR YELLOW; URINE GLUCOSE (UA) NEGATIVE (NEGATIVE); URINE KETONE NEGATIVE (NEGATIVE); URINE LEUK ESTERASE NEGATIVE (NEGATIVE); URINE NITRITE NEGATIVE (NEGATIVE); URINE PROTEIN NEGATIVE (NEGATIVE); URINE UROBILINOGEN 0.2 mg/dL (0.2-1.0)
[2021-01-20 15:24] LABS: ANISOCYTOSIS 2+; MACROCYTOSIS 0; OVALOCYTE 1+; PLATELET ESTIMATE NORMAL; TARGET CELLS 1+
[2021-01-20 16:52] LABS: HEMATOCRIT 24.8 % (32.4-45.2); HEMOGLOBIN 7.5 GM/dL (10.7-15.3); MCH 21.7 pg (25.7-33.7); MCHC 30.3 g/dl (32.0-36.0); MEAN CELL VOLUME 71.4 fl (80-96); MEAN PLT VOLUME 8.3 fl (7.5-11.1); PLATELET COUNT 309 K/MM3 (134-434); RBC 3.47 M/mm3 (3.60-5.2); RDW 21.7 % (11.6-15.6); WHITE BLOOD COUNT 7.7 K/mm3 (4.0-10.0)
[2021-01-20] MEDS: POLYETHYLENE GLYCOL 3350 119 GM BTL PO SCH ×2 (17:30→21:19)
[2021-01-20] MEDS: DOCUSATE SODIUM 100 MG CAPSULE (FP) PO SCH (21:18)
[2021-01-21] MEDS: POLYETHYLENE GLYCOL 3350 119 GM BTL PO SCH ×3 (05:46→21:20)
[2021-01-21 07:26] LABS: HEMATOCRIT 25.1 % (32.4-45.2); HEMOGLOBIN 7.6 GM/dL (10.7-15.3); MCH 21.8 pg (25.7-33.7); MCHC 30.2 g/dl (32.0-36.0); MEAN CELL VOLUME 72.1 fl (80-96); MEAN PLT VOLUME 8.6 fl (7.5-11.1); PLATELET COUNT 315 K/MM3 (134-434); RBC 3.48 M/mm3 (3.60-5.2); RDW 21.5 % (11.6-15.6); WHITE BLOOD COUNT 7.5 K/mm3 (4.0-10.0)
[2021-01-21 07:45] LABS: MAGNESIUM 2.5 mg/dL (1.8-2.4)
[2021-01-21 07:54] LABS: ALBUMIN 2.8 g/dl (3.4-5.0); CALCIUM 7.9 mg/dL (8.5-10.1)
[2021-01-21 07:55] LABS: BLOOD UREA NITROGEN 13.4 mg/dL (7-18)
[2021-01-21 07:58] LABS: BILIRUBIN,TOTAL 0.9 mg/dL (0.2-1); CREATININE 1.2 mg/dL (0.55-1.3); TOT PROT 6.8 g/dl (6.4-8.2)
[2021-01-21] MEDS ORDERED: PEG 3350/NA SULF BICARB CL/KCL 4000 ML SOLN.RECON PO ONE ×3 (09:00→16:00)
[2021-01-21] MEDS ORDERED: PT OWN MED DRAWER 7, Y5N ONE (09:13)
[2021-01-21] MEDS: METOPROLOL TARTRATE 25 MG TABLET (FP) PO SCH ×2 (09:23→21:27)
[2021-01-21] MEDS: CYANOCOBALAMIN 1,000 MCG TABLET (FP) PO SCH (09:23)
[2021-01-21] MEDS: amLODIPine BESYLATE 10 MG TABLET (FP) PO SCH (09:23)
[2021-01-21] MEDS: PANTOPRAZOLE SODIUM 40 MG VIAL IVPUSH SCH ×2 (09:23→21:27)
[2021-01-21] MEDS: BRIMONIDINE TARTRATE 0.2% OPHTHALMIC 5 ML BOTTLE OU SCH ×2 (09:24→21:27)
[2021-01-21] MEDS: prednisoLONE ACETATE 1% OPHTH SUSP 5 ML BOTTLE OU SCH ×2 (09:24→21:27)
[2021-01-21] MEDS ORDERED: METOPROLOL TARTRATE 25 MG TABLET (FP) PO SCH (10:00)
[2021-01-21] MEDS ORDERED: REGADENOSON 0.4 MG/5 ML PRE-FILLED SYRINGE IVPUSH ONE ×2 (10:38→11:00)
[2021-01-21] MEDS ORDERED: IRON SUCROSE INJECTION 200 MG in SODIUM CHLORIDE 90 ML IVPB ONE (13:00)
[2021-01-21] MEDS: ACETAMINOPHEN 325 MG TABLET (FP) PO PRN (14:35)
[2021-01-21] MEDS ORDERED: BISACODYL 5 MG TABLET.DR (FP) PO ONE ×3 (15:36→20:00)
[2021-01-21] MEDS: DOCUSATE SODIUM 100 MG CAPSULE (FP) PO SCH (21:20)
[2021-01-22] MEDS: POLYETHYLENE GLYCOL 3350 119 GM BTL PO SCH ×3 (05:20→21:14)
[2021-01-22 06:46] LABS: HEMATOCRIT 30.1 % (32.4-45.2); HEMOGLOBIN 9.1 GM/dL (10.7-15.3); MCH 22.5 pg (25.7-33.7); MCHC 30.1 g/dl (32.0-36.0); MEAN PLT VOLUME 8.1 fl (7.5-11.1); PLATELET COUNT 303 K/MM3 (134-434); RBC 4.02 M/mm3 (3.60-5.2); RDW 22.5 % (11.6-15.6); WHITE BLOOD COUNT 9.7 K/mm3 (4.0-10.0)
[2021-01-22 07:18] LABS: CALCIUM 8.2 mg/dL (8.5-10.1)
[2021-01-22 07:19] LABS: ALBUMIN 2.9 g/dl (3.4-5.0); BLOOD UREA NITROGEN 10.4 mg/dL (7-18); MAGNESIUM 2.1 mg/dL (1.8-2.4)
[2021-01-22 07:22] LABS: CREATININE 1.2 mg/dL (0.55-1.3)
[2021-01-22 07:24] LABS: BILIRUBIN,TOTAL 0.6 mg/dL (0.2-1); TOT PROT 7.2 g/dl (6.4-8.2)
[2021-01-22] MEDS ORDERED: POTASSIUM CHLORIDE TABS 20 MEQ TABLET.ER (FP) PO ONE ×2 (07:59→12:15)
[2021-01-22] MEDS: PANTOPRAZOLE SODIUM 40 MG VIAL IVPUSH SCH ×2 (12:44→21:14)
[2021-01-22] MEDS: amLODIPine BESYLATE 10 MG TABLET (FP) PO SCH (12:44)
[2021-01-22] MEDS: CYANOCOBALAMIN 1,000 MCG TABLET (FP) PO SCH (12:45)
[2021-01-22] MEDS: METOPROLOL TARTRATE 25 MG TABLET (FP) PO SCH ×2 (12:45→21:14)
[2021-01-22] MEDS: BRIMONIDINE TARTRATE 0.2% OPHTHALMIC 5 ML BOTTLE OU SCH ×2 (12:45→21:13)
[2021-01-22] MEDS: prednisoLONE ACETATE 1% OPHTH SUSP 5 ML BOTTLE OU SCH ×3 (12:46→21:14)
[2021-01-22] MEDS: LIDOCAINE 5% TOPICAL PATCH TP SCH (13:38)
[2021-01-22] MEDS: DOCUSATE SODIUM 100 MG CAPSULE (FP) PO SCH (21:14)
[2021-01-22] MEDS ORDERED: LIDOCAINE PATCH REMOVAL MC SCH (22:00)
[2021-01-23] MEDS: POLYETHYLENE GLYCOL 3350 119 GM BTL PO SCH ×2 (05:22→13:26)
[2021-01-23 07:56] LABS: HEMATOCRIT 28.7 % (32.4-45.2); HEMOGLOBIN 8.7 GM/dL (10.7-15.3); MCH 22.8 pg (25.7-33.7); MCHC 30.2 g/dl (32.0-36.0); MEAN CELL VOLUME 75.3 fl (80-96); MEAN PLT VOLUME 8.5 fl (7.5-11.1); PLATELET COUNT 299 K/MM3 (134-434); RBC 3.82 M/mm3 (3.60-5.2); RDW 23.3 % (11.6-15.6); WHITE BLOOD COUNT 10.1 K/mm3 (4.0-10.0)
[2021-01-23 08:12] LABS: ALBUMIN 2.7 g/dl (3.4-5.0); BLOOD UREA NITROGEN 11.4 mg/dL (7-18); CALCIUM 8.6 mg/dL (8.5-10.1)
[2021-01-23 08:13] LABS: MAGNESIUM 2.1 mg/dL (1.8-2.4)
[2021-01-23 08:14] LABS: CREATININE 1.3 mg/dL (0.55-1.3)
[2021-01-23 08:15] LABS: BILIRUBIN,TOTAL 0.3 mg/dL (0.2-1)
[2021-01-23] MEDS ORDERED: PT OWN MED DRAWER 7, Y5N ONE (09:05)
[2021-01-23] MEDS: ACETAMINOPHEN 325 MG TABLET (FP) PO PRN (09:23)
[2021-01-23] MEDS: CYANOCOBALAMIN 1,000 MCG TABLET (FP) PO SCH (09:23)
[2021-01-23] MEDS: METOPROLOL TARTRATE 25 MG TABLET (FP) PO SCH (09:23)
[2021-01-23] MEDS: amLODIPine BESYLATE 10 MG TABLET (FP) PO SCH (09:23)
[2021-01-23] MEDS: LIDOCAINE 5% TOPICAL PATCH TP SCH (09:25)
[2021-01-23] MEDS: BRIMONIDINE TARTRATE 0.2% OPHTHALMIC 5 ML BOTTLE OU SCH (09:26)
[2021-01-23] MEDS: prednisoLONE ACETATE 1% OPHTH SUSP 5 ML BOTTLE OU SCH (09:26)
[2021-01-23] MEDS ORDERED: PANTOPRAZOLE 40 MG TABLET PO SCH (10:00)
[2021-01-23 13:27] VITALS: BP 107/60; PULSE 63; TEMP 98.5
== END 2021-01-23 18:00 | disposition home or self-care (01) | DRG 378 ==
LOC: JER 17:33 → JERBED 21:51 → J4S 01-20 02:38
PROVIDERS: ADMIT Hospitalist; ATTEND Nurse Practitioner Acute Care
PROC: 30233N1 Transfusion of Nonautologous Red Blood Cells into Peripheral Vein, Percutaneous Approach (ICD-10-PCS; 2021-01-19)
PROC: 0DB78ZX Excision of Stomach, Pylorus, Via Natural or Artificial Opening Endoscopic, Diagnostic (ICD-10-PCS; 2021-01-22)
PROC: 0DBE8ZX Excision of Large Intestine, Via Natural or Artificial Opening Endoscopic, Diagnostic (ICD-10-PCS; 2021-01-22)
PROC: 0DB98ZX Excision of Duodenum, Via Natural or Artificial Opening Endoscopic, Diagnostic (ICD-10-PCS; principal; 2021-01-22 11:30)
DX: K29.71 Gastritis, unspecified, with bleeding (principal); I50.32 Chronic diastolic (congestive) heart failure; Z68.41 Body mass index [BMI] 40.0-44.9, adult; D64.9 Anemia, unspecified; E66.9 Obesity, unspecified; I48.91 Unspecified atrial fibrillation; K44.9 Diaphragmatic hernia without obstruction or gangrene; K63.5 Polyp of colon; K57.90 Diverticulosis of intestine, part unspecified, without perforation or abscess without bleeding; I25.10 Atherosclerotic heart disease of native coronary artery without angina pectoris; E78.5 Hyperlipidemia, unspecified; K21.9 Gastro-esophageal reflux disease without esophagitis; K59.09 Other constipation; R07.9 Chest pain, unspecified; I10 Essential (primary) hypertension; K29.80 Duodenitis without bleeding
CPT/HCPCS: 36415; 36430; 36511; 71045-TC-FY; 78452-TC; 80053; 80061; 81003; 82272; 82728; 82962; 83036; 83540; 83550; 83721; 83735; 84100; 84484; 85025; 85027; 85610; 85730; 86850; 86900; 86901; 86922; 88305-TC; 93005; 93010; 93017; 93306-TC; 99285-25; A9502; C9803; G0008; J1756; J2785; P9038; P9058; Q2036; U0003; U0005

== ENCOUNTER 2021-05-17 11:25 | Inpatient (IN) | payer OTHER ==
[2021-05-17] MEDS ORDERED: LIDOCAINE 5% TOPICAL PATCH TP ONE (13:00)
[2021-05-17] MEDS ORDERED: ACETAMINOPHEN 500 MG TABLET (FP) PO ONE (13:33)
[2021-05-17] MEDS ORDERED: ACETAMINOPHEN 325 MG TABLET (FP) ONE (13:36)
[2021-05-17] MEDS ORDERED: LIDOCAINE 5% TOPICAL PATCH ONE (13:37)
[2021-05-17] MEDS ORDERED: ACETAMINOPHEN 1000 MG/100 ML VIAL (NON FORMULARY) IVPB ONE (14:00)
[2021-05-17] MEDS ORDERED: IBUPROFEN 600 MG TABLET (FP) PO ONE ×2 (16:37→17:40)
[2021-05-17] MEDS ORDERED: morphine CARPU-JECT 2 MG/1 ML DISP.SYRIN IVPUSH ONE ×2 (17:03→19:28)
[2021-05-17] MEDS ORDERED: MORPHINE SULFATE 2 MG/ML VIAL ONE ×2 (17:40→19:40)
[2021-05-17 17:54] LABS: BASO % 2.8 % (0-2.0); EOS % 0.7 % (0-4.5); HEMATOCRIT 38.7 % (32.4-45.2); HEMOGLOBIN 12.9 GM/dL (10.7-15.3); LYMPH % 6.5 % (8-40); MCH 31.6 pg (25.7-33.7); MCHC 33.4 g/dl (32.0-36.0); MEAN CELL VOLUME 94.5 fl (80-96); MEAN PLT VOLUME 8.5 fl (7.5-11.1); MONO % 9.1 % (3.8-10.2); NEUT % 80.9 % (42.8-82.8); PLATELET COUNT 268 10^3/uL (134-434); RDW 15.3 % (11.6-15.6); WHITE BLOOD COUNT 10.5 K/mm3 (4.0-10.0)
[2021-05-17 18:00] LABS: INR 1.07 (0.83-1.09); PROTHROMBIN TIME (PATIENT) 12.9 SEC (9.7-13.0)
[2021-05-17 18:03] LABS: ACTIVATED PTT 29.3 SECONDS (25.2-36.5)
[2021-05-17 18:04] LABS: EPI CELLS 7 /uL (0-25.1); HYALINE CASTS 1 /uL (0-3.1); URINE APPEARANCE CLOUDY; URINE BACTERIA >9,000 /uL (0-1359); URINE BILIRUBIN NEGATIVE (NEGATIVE); URINE COLOR YELLOW; URINE GLUCOSE (UA) NEGATIVE (NEGATIVE); URINE KETONE NEGATIVE (NEGATIVE); URINE LEUK ESTERASE 2+ (NEGATIVE); URINE NITRITE POSITIVE (NEGATIVE); URINE PROTEIN NEGATIVE (NEGATIVE); URINE RBC 5 /uL (0-23.9); URINE UROBILINOGEN 0.2 mg/dL (0.2-1.0); URINE WBC 63 /uL (0-25.8)
[2021-05-17] MEDS ORDERED: CEFTRIAXONE 1 GM in DEXTROSE 5%-WATER - 100 ML IVPB ONE (18:08)
[2021-05-17 18:17] LABS: CALCIUM 8.9 mg/dL (8.5-10.1)
[2021-05-17 18:18] LABS: ALBUMIN 3.4 g/dl (3.4-5.0); BLOOD UREA NITROGEN 14.8 mg/dL (7-18); MAGNESIUM 1.9 mg/dL (1.8-2.4)
[2021-05-17 18:21] LABS: CREATININE 1.1 mg/dL (0.55-1.3)
[2021-05-17 18:22] LABS: BILIRUBIN,TOTAL 0.3 mg/dL (0.2-1)
[2021-05-17] MEDS ORDERED: CEFTRIAXONE 1 GM/50 ML BAG ONE (19:40)
[2021-05-17] MEDS ORDERED: LIDOCAINE PATCH REMOVAL MC ONE (22:00)
[2021-05-17] MEDS ORDERED: amLODIPine BESYLATE 5 MG TABLET (FP) PO ONE (22:21)
[2021-05-17] MEDS ORDERED: amLODIPine BESYLATE 5 MG TABLET (FP) ONE (22:45)
[2021-05-18] MEDS: GABAPENTIN 100 MG CAPSULE PO SCH ×3 (06:13→21:06)
[2021-05-18] MEDS: HYDROCHLOROTHIAZIDE 12.5 MG CAPSULE (FP) PO SCH (06:13)
[2021-05-18] MEDS: ACETAMINOPHEN 325 MG TABLET (FP) PO PRN ×2 (06:18→16:56)
[2021-05-18 07:57] LABS: HEMATOCRIT 36.4 % (32.4-45.2); MCH 31.4 pg (25.7-33.7); MCHC 32.9 g/dl (32.0-36.0); MEAN CELL VOLUME 95.3 fl (80-96); MEAN PLT VOLUME 8.8 fl (7.5-11.1); PLATELET COUNT 233 10^3/uL (134-434); RBC 3.82 M/mm3 (3.60-5.2); RDW 15.3 % (11.6-15.6); WHITE BLOOD COUNT 8.9 K/mm3 (4.0-10.0)
[2021-05-18 08:16] LABS: CALCIUM 8.5 mg/dL (8.5-10.1)
[2021-05-18 08:17] LABS: BLOOD UREA NITROGEN 16.9 mg/dL (7-18); MAGNESIUM 2.2 mg/dL (1.8-2.4)
[2021-05-18 08:20] LABS: CREATININE 1.1 mg/dL (0.55-1.3); PHOSPHOROUS 3.7 mg/dL (2.5-4.9)
[2021-05-18] MEDS ORDERED: cefTRIAXone SODIUM 1 GM VIAL ONE (09:36)
[2021-05-18] MEDS ORDERED: DEXTROSE 5%-WATER - 50 ML IVPB ONE (09:36)
[2021-05-18] MEDS: NYSTATIN POWDER 100,000 UNITS/GM - 15 GM TOPICAL POWDER TP SCH (09:41)
[2021-05-18] MEDS: PANTOPRAZOLE 20 MG TABLET PO SCH (09:42)
[2021-05-18] MEDS: METOPROLOL TARTRATE 25 MG TABLET (FP) PO SCH (09:42)
[2021-05-18] MEDS ORDERED: CEFTRIAXONE 1 GM in DEXTROSE 5%-WATER - 50 ML IVPB ONE (10:00)
[2021-05-18] MEDS ORDERED: PATIENT'S OWN MEDICATION (NON-FORMULARY) (Hydroxyzine Hcl [Hydroxyzine Hcl] 10 MG Tablet) PO SCH (10:00)
[2021-05-18] MEDS ORDERED: CEFTRIAXONE 1 GM in DEXTROSE 5%-WATER - 50 ML IVPB SCH (15:30)
[2021-05-18] MEDS: ENOXAPARIN NA (PORCINE) 40 MG/0.4 ML DISP.SYRIN SQ SCH (18:33)
[2021-05-18] MEDS: amLODIPine BESYLATE 5 MG TABLET (FP) PO SCH (21:06)
[2021-05-19] MEDS: HYDROCHLOROTHIAZIDE 12.5 MG CAPSULE (FP) PO SCH (06:17)
[2021-05-19] MEDS: GABAPENTIN 100 MG CAPSULE PO SCH ×3 (06:17→21:16)
[2021-05-19] MEDS: ACETAMINOPHEN 325 MG TABLET (FP) PO PRN (07:01)
[2021-05-19 08:10] LABS: BASO % 0.5 % (0-2.0); EOS % 2.7 % (0-4.5); HEMATOCRIT 38.1 % (32.4-45.2); HEMOGLOBIN 12.6 GM/dL (10.7-15.3); LYMPH % 18.9 % (8-40); MCH 31.5 pg (25.7-33.7); MEAN CELL VOLUME 95.4 fl (80-96); MEAN PLT VOLUME 8.7 fl (7.5-11.1); MONO % 13.9 % (3.8-10.2); PLATELET COUNT 242 10^3/uL (134-434); RBC 3.99 M/mm3 (3.60-5.2); RDW 15.5 % (11.6-15.6); WHITE BLOOD COUNT 7.6 K/mm3 (4.0-10.0)
[2021-05-19 08:26] LABS: CALCIUM 8.6 mg/dL (8.5-10.1)
[2021-05-19 08:27] LABS: BLOOD UREA NITROGEN 19.4 mg/dL (7-18)
[2021-05-19 08:30] LABS: CREATININE 1.2 mg/dL (0.55-1.3)
[2021-05-19] MEDS ORDERED: cefTRIAXone SODIUM 1 GM VIAL ONE (10:00)
[2021-05-19] MEDS ORDERED: DEXTROSE 5%-WATER - 50 ML IVPB ONE (10:00)
[2021-05-19] MEDS: ENOXAPARIN NA (PORCINE) 40 MG/0.4 ML DISP.SYRIN SQ SCH (10:08)
[2021-05-19] MEDS: CEFTRIAXONE 1 GM in DEXTROSE 5%-WATER - 50 ML IVPB SCH (10:08)
[2021-05-19] MEDS: NYSTATIN POWDER 100,000 UNITS/GM - 15 GM TOPICAL POWDER TP SCH (10:09)
[2021-05-19] MEDS: PANTOPRAZOLE 20 MG TABLET PO SCH (10:09)
[2021-05-19] MEDS: METOPROLOL TARTRATE 25 MG TABLET (FP) PO SCH (10:09)
[2021-05-19] MEDS ORDERED: PT OWN MED DRAWER 7, Y5N ONE (12:57)
[2021-05-19] MEDS: oxyCODONE HCL 5 MG TABLET PO PRN (14:02)
[2021-05-19] MEDS: amLODIPine BESYLATE 5 MG TABLET (FP) PO SCH (21:17)
[2021-05-20 01:24] VITALS: BMI 41.5
[2021-05-20] MEDS: HYDROCHLOROTHIAZIDE 12.5 MG CAPSULE (FP) PO SCH (06:06)
[2021-05-20] MEDS: GABAPENTIN 100 MG CAPSULE PO SCH ×3 (06:06→21:13)
[2021-05-20] MEDS ORDERED: DEXTROSE 5%-WATER - 50 ML IVPB ONE (08:42)
[2021-05-20] MEDS ORDERED: cefTRIAXone SODIUM 1 GM VIAL ONE (08:42)
[2021-05-20 08:44] LABS: BASO % 0.6 % (0-2.0); EOS % 2.3 % (0-4.5); HEMATOCRIT 38.8 % (32.4-45.2); LYMPH % 14.3 % (8-40); MCH 31.5 pg (25.7-33.7); MCHC 33.6 g/dl (32.0-36.0); MEAN CELL VOLUME 93.9 fl (80-96); MEAN PLT VOLUME 8.3 fl (7.5-11.1); MONO % 15.5 % (3.8-10.2); NEUT % 67.3 % (42.8-82.8); PLATELET COUNT 227 10^3/uL (134-434); RBC 4.13 M/mm3 (3.60-5.2); RDW 15.1 % (11.6-15.6); WHITE BLOOD COUNT 8.1 K/mm3 (4.0-10.0)
[2021-05-20 09:03] LABS: BLOOD UREA NITROGEN 22.6 mg/dL (7-18); CALCIUM 8.5 mg/dL (8.5-10.1); MAGNESIUM 2.2 mg/dL (1.8-2.4)
[2021-05-20] MEDS: ENOXAPARIN NA (PORCINE) 40 MG/0.4 ML DISP.SYRIN SQ SCH (09:04)
[2021-05-20] MEDS: METOPROLOL TARTRATE 25 MG TABLET (FP) PO SCH (09:04)
[2021-05-20] MEDS: PANTOPRAZOLE 20 MG TABLET PO SCH (09:04)
[2021-05-20] MEDS: NYSTATIN POWDER 100,000 UNITS/GM - 15 GM TOPICAL POWDER TP SCH (09:04)
[2021-05-20] MEDS: CEFTRIAXONE 1 GM in DEXTROSE 5%-WATER - 50 ML IVPB SCH (09:04)
[2021-05-20 09:06] LABS: CREATININE 1.2 mg/dL (0.55-1.3); PHOSPHOROUS 3.5 mg/dL (2.5-4.9)
[2021-05-20] MEDS ORDERED: LACTULOSE 20 GM/30 ML UDC (FOR ORAL USE ONLY) PO PRN (14:34)
[2021-05-20] MEDS ORDERED: POLYETHYLENE GLYCOL 3350 119 GM BTL PO SCH (14:45)
[2021-05-20] MEDS: DOCUSATE SODIUM 100 MG CAPSULE (FP) PO SCH (15:31)
[2021-05-20] MEDS: oxyCODONE HCL 5 MG TABLET PO PRN (15:32)
[2021-05-20] MEDS: amLODIPine BESYLATE 5 MG TABLET (FP) PO SCH (21:13)
[2021-05-21] MEDS: HYDROCHLOROTHIAZIDE 12.5 MG CAPSULE (FP) PO SCH (06:24)
[2021-05-21] MEDS: GABAPENTIN 100 MG CAPSULE PO SCH ×3 (06:24→21:14)
[2021-05-21] MEDS: oxyCODONE HCL 5 MG TABLET PO PRN (08:23)
[2021-05-21] MEDS ORDERED: cefTRIAXone SODIUM 1 GM VIAL ONE (09:21)
[2021-05-21] MEDS ORDERED: DEXTROSE 5%-WATER - 50 ML IVPB ONE (09:21)
[2021-05-21] MEDS: CEFTRIAXONE 1 GM in DEXTROSE 5%-WATER - 50 ML IVPB SCH (09:27)
[2021-05-21] MEDS: PANTOPRAZOLE 20 MG TABLET PO SCH (09:28)
[2021-05-21] MEDS: METOPROLOL TARTRATE 25 MG TABLET (FP) PO SCH (09:28)
[2021-05-21] MEDS: DOCUSATE SODIUM 100 MG CAPSULE (FP) PO SCH (09:28)
[2021-05-21] MEDS: ENOXAPARIN NA (PORCINE) 40 MG/0.4 ML DISP.SYRIN SQ SCH (09:28)
[2021-05-21] MEDS: NYSTATIN POWDER 100,000 UNITS/GM - 15 GM TOPICAL POWDER TP SCH (09:28)
[2021-05-21] MEDS: ACETAMINOPHEN 325 MG TABLET (FP) PO PRN (12:14)
[2021-05-21 13:15] LABS: HEMATOCRIT 34.9 % (32.4-45.2); HEMOGLOBIN 11.7 GM/dL (10.7-15.3); MCH 31.7 pg (25.7-33.7); MCHC 33.5 g/dl (32.0-36.0); MEAN CELL VOLUME 94.6 fl (80-96); PLATELET COUNT 235 10^3/uL (134-434); RBC 3.69 M/mm3 (3.60-5.2); RDW 15.3 % (11.6-15.6); WHITE BLOOD COUNT 7.2 K/mm3 (4.0-10.0)
[2021-05-21 13:35] LABS: CALCIUM 8.2 mg/dL (8.5-10.1)
[2021-05-21 13:39] LABS: CREATININE 1.2 mg/dL (0.55-1.3)
[2021-05-21] MEDS: POLYETHYLENE GLYCOL (HEALTHYLAX) 3350 17 GM PACKET PO SCH (13:42)
[2021-05-21] MEDS: APIXABAN 5 MG TABLET PO SCH (21:14)
[2021-05-21] MEDS: amLODIPine BESYLATE 5 MG TABLET (FP) PO SCH (21:15)
[2021-05-22] MEDS: GABAPENTIN 100 MG CAPSULE PO SCH ×3 (06:22→22:48)
[2021-05-22] MEDS: HYDROCHLOROTHIAZIDE 12.5 MG CAPSULE (FP) PO SCH (06:22)
[2021-05-22] MEDS: oxyCODONE HCL 5 MG TABLET PO PRN (06:26)
[2021-05-22] MEDS ORDERED: DEXTROSE 5%-WATER - 50 ML IVPB ONE (09:55)
[2021-05-22] MEDS ORDERED: cefTRIAXone SODIUM 1 GM VIAL ONE (09:55)
[2021-05-22] MEDS: CEFTRIAXONE 1 GM in DEXTROSE 5%-WATER - 50 ML IVPB SCH (10:15)
[2021-05-22] MEDS: METOPROLOL TARTRATE 25 MG TABLET (FP) PO SCH (10:15)
[2021-05-22] MEDS: DOCUSATE SODIUM 100 MG CAPSULE (FP) PO SCH (10:15)
[2021-05-22] MEDS: APIXABAN 5 MG TABLET PO SCH ×2 (10:15→22:48)
[2021-05-22] MEDS: PANTOPRAZOLE 20 MG TABLET PO SCH (10:15)
[2021-05-22] MEDS: POLYETHYLENE GLYCOL (HEALTHYLAX) 3350 17 GM PACKET PO SCH (10:15)
[2021-05-22] MEDS: NYSTATIN POWDER 100,000 UNITS/GM - 15 GM TOPICAL POWDER TP SCH (10:16)
[2021-05-22] MEDS: amLODIPine BESYLATE 5 MG TABLET (FP) PO SCH (22:48)
[2021-05-23] MEDS: GABAPENTIN 100 MG CAPSULE PO SCH ×3 (05:56→21:25)
[2021-05-23] MEDS: HYDROCHLOROTHIAZIDE 12.5 MG CAPSULE (FP) PO SCH (06:15)
[2021-05-23] MEDS: NYSTATIN POWDER 100,000 UNITS/GM - 15 GM TOPICAL POWDER TP SCH ×2 (06:41→09:07)
[2021-05-23] MEDS ORDERED: DEXTROSE 5%-WATER - 50 ML IVPB ONE (08:52)
[2021-05-23] MEDS ORDERED: cefTRIAXone SODIUM 1 GM VIAL ONE (08:52)
[2021-05-23] MEDS: APIXABAN 5 MG TABLET PO SCH ×2 (09:04→21:25)
[2021-05-23] MEDS: POLYETHYLENE GLYCOL (HEALTHYLAX) 3350 17 GM PACKET PO SCH (09:04)
[2021-05-23] MEDS: METOPROLOL TARTRATE 25 MG TABLET (FP) PO SCH (09:04)
[2021-05-23] MEDS: PANTOPRAZOLE 20 MG TABLET PO SCH (09:05)
[2021-05-23] MEDS: oxyCODONE HCL 5 MG TABLET PO PRN ×2 (09:05→19:59)
[2021-05-23] MEDS: DOCUSATE SODIUM 100 MG CAPSULE (FP) PO SCH (09:06)
[2021-05-23] MEDS: ACETAMINOPHEN 325 MG TABLET (FP) PO PRN ×2 (09:06→19:59)
[2021-05-23] MEDS: CEFTRIAXONE 1 GM in DEXTROSE 5%-WATER - 50 ML IVPB SCH (09:07)
[2021-05-23] MEDS: amLODIPine BESYLATE 5 MG TABLET (FP) PO SCH (21:25)
[2021-05-24] MEDS ORDERED: ONDANSETRON 4 MG TABLET PO ONE (02:30)
[2021-05-24] MEDS: GABAPENTIN 100 MG CAPSULE PO SCH ×3 (06:00→21:25)
[2021-05-24] MEDS: HYDROCHLOROTHIAZIDE 12.5 MG CAPSULE (FP) PO SCH (06:00)
[2021-05-24] MEDS ORDERED: cefTRIAXone SODIUM 1 GM VIAL ONE (10:54)
[2021-05-24] MEDS ORDERED: DEXTROSE 5%-WATER - 50 ML IVPB ONE (10:55)
[2021-05-24] MEDS: oxyCODONE HCL 5 MG TABLET PO PRN (11:03)
[2021-05-24] MEDS: ACETAMINOPHEN 325 MG TABLET (FP) PO PRN (11:04)
[2021-05-24] MEDS: APIXABAN 5 MG TABLET PO SCH ×2 (11:05→21:25)
[2021-05-24] MEDS: CEFTRIAXONE 1 GM in DEXTROSE 5%-WATER - 50 ML IVPB SCH (11:05)
[2021-05-24] MEDS: PANTOPRAZOLE 20 MG TABLET PO SCH (11:05)
[2021-05-24] MEDS: DOCUSATE SODIUM 100 MG CAPSULE (FP) PO SCH (11:05)
[2021-05-24] MEDS: POLYETHYLENE GLYCOL (HEALTHYLAX) 3350 17 GM PACKET PO SCH (11:13)
[2021-05-24] MEDS: METOPROLOL TARTRATE 25 MG TABLET (FP) PO SCH (11:35)
[2021-05-24 12:32] LABS: HEMATOCRIT 37.3 % (32.4-45.2); HEMOGLOBIN 12.4 GM/dL (10.7-15.3); MCH 31.7 pg (25.7-33.7); MCHC 33.3 g/dl (32.0-36.0); PLATELET COUNT 303 10^3/uL (134-434); RBC 3.92 M/mm3 (3.60-5.2); RDW 15.3 % (11.6-15.6); WHITE BLOOD COUNT 6.1 K/mm3 (4.0-10.0)
[2021-05-24 12:49] LABS: CALCIUM 8.4 mg/dL (8.5-10.1)
[2021-05-24 12:50] LABS: ALBUMIN 2.9 g/dl (3.4-5.0); BLOOD UREA NITROGEN 23.2 mg/dL (7-18)
[2021-05-24 12:53] LABS: CREATININE 1.1 mg/dL (0.55-1.3)
[2021-05-24 12:54] LABS: BILIRUBIN,TOTAL 0.4 mg/dL (0.2-1); TOT PROT 7.3 g/dl (6.4-8.2)
[2021-05-24] MEDS: NYSTATIN POWDER 100,000 UNITS/GM - 15 GM TOPICAL POWDER TP SCH (14:11)
[2021-05-24] MEDS ORDERED: ONDANSETRON 4 MG/2 ML VIAL IVPUSH ONE (14:15)
[2021-05-24] MEDS: traZODone HCL 50 MG TABLET (FP) PO SCH (21:25)
[2021-05-25] MEDS: HYDROCHLOROTHIAZIDE 12.5 MG CAPSULE (FP) PO SCH (06:09)
[2021-05-25] MEDS: GABAPENTIN 100 MG CAPSULE PO SCH ×3 (06:10→21:01)
[2021-05-25 07:31] LABS: BASO % 1.2 % (0-2.0); EOS % 4.8 % (0-4.5); HEMATOCRIT 37.1 % (32.4-45.2); HEMOGLOBIN 12.3 GM/dL (10.7-15.3); LYMPH % 20.1 % (8-40); MCH 31.8 pg (25.7-33.7); MCHC 33.2 g/dl (32.0-36.0); MEAN CELL VOLUME 95.8 fl (80-96); NEUT % 59.9 % (42.8-82.8); PLATELET COUNT 274 10^3/uL (134-434); RBC 3.88 M/mm3 (3.60-5.2); WHITE BLOOD COUNT 6.1 K/mm3 (4.0-10.0)
[2021-05-25 07:45] LABS: CALCIUM 8.4 mg/dL (8.5-10.1)
[2021-05-25 07:46] LABS: BLOOD UREA NITROGEN 23.3 mg/dL (7-18)
[2021-05-25 07:49] LABS: CREATININE 1.2 mg/dL (0.55-1.3)
[2021-05-25 07:50] LABS: BILIRUBIN,TOTAL 0.3 mg/dL (0.2-1)
[2021-05-25 07:51] LABS: TOT PROT 7.4 g/dl (6.4-8.2)
[2021-05-25] MEDS: ACETAMINOPHEN 325 MG TABLET (FP) PO PRN ×2 (07:59→21:01)
[2021-05-25] MEDS ORDERED: cefTRIAXone SODIUM 1 GM VIAL ONE (09:42)
[2021-05-25] MEDS ORDERED: DEXTROSE 5%-WATER - 50 ML IVPB ONE (09:42)
[2021-05-25] MEDS: CEFTRIAXONE 1 GM in DEXTROSE 5%-WATER - 50 ML IVPB SCH (09:44)
[2021-05-25] MEDS: APIXABAN 5 MG TABLET PO SCH ×2 (09:45→21:01)
[2021-05-25] MEDS: PANTOPRAZOLE 20 MG TABLET PO SCH (09:45)
[2021-05-25] MEDS: DOCUSATE SODIUM 100 MG CAPSULE (FP) PO SCH (09:45)
[2021-05-25] MEDS: METOPROLOL TARTRATE 25 MG TABLET (FP) PO SCH (09:45)
[2021-05-25] MEDS: POLYETHYLENE GLYCOL (HEALTHYLAX) 3350 17 GM PACKET PO SCH (09:45)
[2021-05-25] MEDS: NYSTATIN POWDER 100,000 UNITS/GM - 15 GM TOPICAL POWDER TP SCH (09:46)
[2021-05-25] MEDS: traZODone HCL 50 MG TABLET (FP) PO SCH (21:01)
[2021-05-26] MEDS: GABAPENTIN 100 MG CAPSULE PO SCH ×3 (06:22→21:01)
[2021-05-26] MEDS: HYDROCHLOROTHIAZIDE 12.5 MG CAPSULE (FP) PO SCH (06:22)
[2021-05-26] MEDS ORDERED: DEXTROSE 5%-WATER - 50 ML IVPB ONE (09:09)
[2021-05-26] MEDS ORDERED: cefTRIAXone SODIUM 1 GM VIAL ONE (09:09)
[2021-05-26] MEDS: DOCUSATE SODIUM 100 MG CAPSULE (FP) PO SCH (09:10)
[2021-05-26] MEDS: POLYETHYLENE GLYCOL (HEALTHYLAX) 3350 17 GM PACKET PO SCH (09:11)
[2021-05-26] MEDS: PANTOPRAZOLE 20 MG TABLET PO SCH (09:11)
[2021-05-26] MEDS: APIXABAN 5 MG TABLET PO SCH ×2 (09:11→21:01)
[2021-05-26] MEDS: METOPROLOL TARTRATE 25 MG TABLET (FP) PO SCH (09:11)
[2021-05-26] MEDS: NYSTATIN POWDER 100,000 UNITS/GM - 15 GM TOPICAL POWDER TP SCH (09:16)
[2021-05-26] MEDS: ACETAMINOPHEN 325 MG TABLET (FP) PO PRN (14:38)
[2021-05-26] MEDS: traZODone HCL 50 MG TABLET (FP) PO SCH (21:01)
[2021-05-27] MEDS: GABAPENTIN 100 MG CAPSULE PO SCH ×2 (06:21→13:36)
[2021-05-27] MEDS: HYDROCHLOROTHIAZIDE 12.5 MG CAPSULE (FP) PO SCH (06:22)
[2021-05-27] MEDS: DOCUSATE SODIUM 100 MG CAPSULE (FP) PO SCH (09:02)
[2021-05-27] MEDS: NYSTATIN POWDER 100,000 UNITS/GM - 15 GM TOPICAL POWDER TP SCH (09:03)
[2021-05-27] MEDS: PANTOPRAZOLE 20 MG TABLET PO SCH (09:03)
[2021-05-27] MEDS: METOPROLOL TARTRATE 25 MG TABLET (FP) PO SCH (09:04)
[2021-05-27] MEDS: APIXABAN 5 MG TABLET PO SCH (09:04)
[2021-05-27] MEDS: POLYETHYLENE GLYCOL (HEALTHYLAX) 3350 17 GM PACKET PO SCH (09:04)
[2021-05-27 09:11] VITALS: PULSE 92
[2021-05-27] MEDS ORDERED: ENOXAPARIN NA (PORCINE) 40 MG/0.4 ML DISP.SYRIN SQ SCH (10:00)
[2021-05-27] MEDS ORDERED: ASPIRIN COATED 81 MG TABLET.EC PO SCH (10:00)
[2021-05-27] MEDS: ACETAMINOPHEN 325 MG TABLET (FP) PO PRN (11:29)
[2021-05-27 14:17] VITALS: BP 128/82; TEMP 97.7
== END 2021-05-27 15:12 | DRG 690 ==
LOC: JER 11:25 → JERBED 19:16 → J7W 05-18 02:22
PROVIDERS: ADMIT Internal Medicine; ATTEND Internal Medicine
DX: N39.0 Urinary tract infection, site not specified (principal); Z68.41 Body mass index [BMI] 40.0-44.9, adult; I50.32 Chronic diastolic (congestive) heart failure; I10 Essential (primary) hypertension; I48.0 Paroxysmal atrial fibrillation; I25.10 Atherosclerotic heart disease of native coronary artery without angina pectoris; E78.5 Hyperlipidemia, unspecified; M48.061 Spinal stenosis, lumbar region without neurogenic claudication; B96.20 Unspecified Escherichia coli [E. coli] as the cause of diseases classified elsewhere; M54.5 Low back pain; I95.1 Orthostatic hypotension; E66.01 Morbid (severe) obesity due to excess calories
CPT/HCPCS: 36415; 70450-TC; 71045-TC-FY; 72125-TC; 72128-TC; 72131-TC; 72170-TC-FY; 73552-TC-RT-FY; 73562-TC-RT-FY; 73590-TC-RT-FY; 73610-TC-RT-FY; 73630-TC-RT-FY; 80048; 80053; 80061; 81003; 82085; 82550; 82607; 82962; 82977; 83735; 84100; 84155; 84165; 84443; 84484; 85025; 85027; 85610; 85651; 85730; 86038; 87086; 87186; 93005; 93010; 93880-TC; 97116-GP; 97161-GP; 99285-25; C9803; U0003; U0005

== ENCOUNTER 2022-01-20 11:11 | Inpatient (IN) | payer OTHER ==
[2022-01-20 12:12] LABS: BASO % 0.5 % (0-2.0); EOS % 2.8 % (0-4.5); HEMOGLOBIN 13.4 GM/dL (10.7-15.3); LYMPH % 18.5 % (8-40); MCH 31.8 pg (25.7-33.7); MCHC 32.7 g/dl (32.0-36.0); MEAN CELL VOLUME 97.3 fl (80-96); MEAN PLT VOLUME 8.2 fl (7.5-11.1); MONO % 16.2 % (3.8-10.2); PLATELET COUNT 281 10^3/uL (134-434); RBC 4.21 M/mm3 (3.60-5.2); RDW 15.7 % (11.6-15.6); WHITE BLOOD COUNT 7.1 K/mm3 (4.0-10.0)
[2022-01-20 12:16] LABS: EPI CELLS 18 /uL (0-25.1); HYALINE CASTS 0 /uL (0-3.1); PH,URINE 7.5 (5.0-8.0); URINE APPEARANCE CLEAR; URINE BACTERIA >9,000 /uL (0-1359); URINE BILIRUBIN NEGATIVE (NEGATIVE); URINE COLOR YELLOW; URINE GLUCOSE (UA) NEGATIVE (NEGATIVE); URINE KETONE NEGATIVE (NEGATIVE); URINE LEUK ESTERASE TRACE (NEGATIVE); URINE NITRITE POSITIVE (NEGATIVE); URINE PROTEIN NEGATIVE (NEGATIVE); URINE RBC 2 /uL (0-23.9); URINE UROBILINOGEN 0.2 mg/dL (0.2-1.0); URINE WBC 22 /uL (0-25.8)
[2022-01-20 12:20] LABS: INR 1.14 (0.83-1.09); PROTHROMBIN TIME (PATIENT) 13.1 SEC (9.7-13.0)
[2022-01-20 12:23] LABS: ACTIVATED PTT 33.1 SECONDS (25.2-36.5)
[2022-01-20] MEDS ORDERED: CEFTRIAXONE 1,000 MG in DEXTROSE 5%-WATER - 50 ML IVPB ONE (12:30)
[2022-01-20 13:16] LABS: CHLORIDE 105 mmol/L (98-107); SODIUM 138 mmol/L (136-145)
[2022-01-20 13:18] LABS: CALCIUM 9.4 mg/dL (8.5-10.1)
[2022-01-20 13:19] LABS: ALBUMIN 3.1 g/dl (3.4-5.0); BLOOD UREA NITROGEN 18.6 mg/dL (7-18); CO2 27 mmol/L (21-32); GLUCOSE,RANDOM 94 mg/dL (74-106); MAGNESIUM 2.3 mg/dL (1.8-2.4)
[2022-01-20 13:22] LABS: CREATININE 1.2 mg/dL (0.55-1.3); SGOT/AST 50 U/L (15-37); SGPT/ALT 21 U/L (13-61)
[2022-01-20 13:23] LABS: BILIRUBIN,TOTAL 0.5 mg/dL (0.2-1); TOT PROT 8.8 g/dl (6.4-8.2)
[2022-01-20 13:25] LABS: ALK PHOS 90 U/L (45-117)
[2022-01-20 13:27] LABS: N-TERMINAL BNP 1067.5 pg/ml (5-450)
[2022-01-20 13:29] LABS: ANION GAP 6 MMOL/L (8-16)
[2022-01-20] MEDS ORDERED: FUROSEMIDE 40 MG/4 ML INJECTABLE VIAL IVPUSH ONE ×2 (13:37→18:59)
[2022-01-20] MEDS ORDERED: CEFTRIAXONE 1 GM/50 ML BAG ONE (13:40)
[2022-01-20] MEDS ORDERED: FUROSEMIDE 40 MG/4 ML INJECTABLE VIAL ONE ×2 (14:16→19:25)
[2022-01-20] MEDS ORDERED: METOPROLOL TARTRATE 25 MG TABLET (FP) ONE (21:19)
[2022-01-20] MEDS ORDERED: GABAPENTIN 100 MG CAPSULE ONE (21:19)
[2022-01-20] MEDS: METOPROLOL TARTRATE 25 MG TABLET (FP) PO SCH (21:32)
[2022-01-20] MEDS: GABAPENTIN 100 MG CAPSULE PO SCH (21:32)
[2022-01-20] MEDS: traZODone HCL 50 MG TABLET (FP) PO SCH (22:24)
[2022-01-21] MEDS: GABAPENTIN 100 MG CAPSULE PO SCH ×2 (05:56→14:31)
[2022-01-21 06:06] LABS: SARS-CoV-2 NAA Not Detected (Not Detected)
[2022-01-21 07:04] LABS: BASO % 0.5 % (0-2.0); EOS % 2.4 % (0-4.5); HEMATOCRIT 40.7 % (32.4-45.2); HEMOGLOBIN 13.4 GM/dL (10.7-15.3); LYMPH % 14.9 % (8-40); MEAN CELL VOLUME 97.1 fl (80-96); MEAN PLT VOLUME 8.6 fl (7.5-11.1); MONO % 16.5 % (3.8-10.2); NEUT % 65.7 % (42.8-82.8); PLATELET COUNT 262 10^3/uL (134-434); RBC 4.19 M/mm3 (3.60-5.2); RDW 15.4 % (11.6-15.6)
[2022-01-21 07:39] LABS: CHOLESTEROL 95 mg/dL (50-200)
[2022-01-21 07:40] LABS: LDL CHOLESTEROL (ONLY SJRH) 46 mg/dL (5-100); TRIGLYCERIDES 66 mg/dL (0-150)
[2022-01-21 07:43] LABS: HDL CHOLESTEROL 51 mg/dL (40-60)
[2022-01-21 07:59] LABS: CALCIUM 8.8 mg/dL (8.5-10.1)
[2022-01-21 08:00] LABS: BLOOD UREA NITROGEN 18.3 mg/dL (7-18); MAGNESIUM 2.1 mg/dL (1.8-2.4)
[2022-01-21 08:03] LABS: CREATININE 1.1 mg/dL (0.55-1.3)
[2022-01-21 08:04] LABS: TOT PROT 8.1 g/dl (6.4-8.2)
[2022-01-21 08:05] LABS: BILIRUBIN,TOTAL 0.7 mg/dL (0.2-1)
[2022-01-21] MEDS ORDERED: METOPROLOL TARTRATE 25 MG TABLET (FP) PO SCH (10:00)
[2022-01-21] MEDS ORDERED: ENOXAPARIN NA (PORCINE) 40 MG/0.4 ML DISP.SYRIN SQ SCH (10:00)
[2022-01-21] MEDS ORDERED: amLODIPine BESYLATE 5 MG TABLET (FP) PO SCH (10:00)
[2022-01-21] MEDS ORDERED: PANTOPRAZOLE 20 MG TABLET PO SCH (10:00)
[2022-01-21] MEDS ORDERED: cefTRIAXone SODIUM 1 GM VIAL ONE (10:16)
[2022-01-21] MEDS ORDERED: DEXTROSE 5%-WATER - 50 ML IVPB ONE (10:17)
[2022-01-21] MEDS: POLYETHYLENE GLYCOL (HEALTHYLAX) 3350 17 GM PACKET PO SCH ×2 (10:39→10:48)
[2022-01-21] MEDS: CEFTRIAXONE 1 GM in DEXTROSE 5%-WATER - 50 ML IVPB SCH (10:39)
[2022-01-21] MEDS: FUROSEMIDE 40 MG/4 ML INJECTABLE VIAL IVPUSH SCH (10:39)
[2022-01-21] MEDS: DOCUSATE SODIUM 100 MG CAPSULE (FP) PO SCH (10:39)
[2022-01-21] MEDS: METOPROLOL TARTRATE 25 MG TABLET (FP) PO SCH ×2 (10:39→21:34)
[2022-01-21] MEDS: APIXABAN 5 MG TABLET PO SCH ×2 (10:58→21:34)
[2022-01-21] MEDS: PANTOPRAZOLE SODIUM 40 MG VIAL IVPUSH SCH (10:58)
[2022-01-21] MEDS: NYSTATIN POWDER 100,000 UNITS/GM - 15 GM TOPICAL POWDER TP SCH ×2 (14:36→21:36)
[2022-01-21] MEDS: hydrOXYzine HCL 10 MG/5 ML LIQUID BULK BOTTLE PO SCH (21:33)
[2022-01-21] MEDS: traZODone HCL 50 MG TABLET (FP) PO SCH (21:34)
[2022-01-21] MEDS ORDERED: APIXABAN 5 MG TABLET PO SCH (22:00)
[2022-01-22 07:41] LABS: HEMATOCRIT 41.3 % (32.4-45.2); HEMOGLOBIN 13.7 GM/dL (10.7-15.3); MCH 32.4 pg (25.7-33.7); MCHC 33.1 g/dl (32.0-36.0); PLATELET COUNT 273 10^3/uL (134-434); RBC 4.21 M/mm3 (3.60-5.2); RDW 15.5 % (11.6-15.6); WHITE BLOOD COUNT 7.2 K/mm3 (4.0-10.0)
[2022-01-22 08:06] LABS: CALCIUM 8.9 mg/dL (8.5-10.1)
[2022-01-22 08:09] LABS: CREATININE 1.5 mg/dL (0.55-1.3)
[2022-01-22 08:11] LABS: BILIRUBIN,TOTAL 0.9 mg/dL (0.2-1)
[2022-01-22] MEDS ORDERED: cefTRIAXone SODIUM 1 GM VIAL ONE (08:11)
[2022-01-22 08:12] LABS: TOT PROT 8.2 g/dl (6.4-8.2)
[2022-01-22] MEDS ORDERED: DEXTROSE 5%-WATER - 50 ML IVPB ONE (08:12)
[2022-01-22] MEDS: CEFTRIAXONE 1 GM in DEXTROSE 5%-WATER - 50 ML IVPB SCH (09:40)
[2022-01-22] MEDS: PANTOPRAZOLE SODIUM 40 MG VIAL IVPUSH SCH (09:40)
[2022-01-22] MEDS: FUROSEMIDE 40 MG/4 ML INJECTABLE VIAL IVPUSH SCH (09:40)
[2022-01-22] MEDS: POLYETHYLENE GLYCOL (HEALTHYLAX) 3350 17 GM PACKET PO SCH (10:05)
[2022-01-22] MEDS: METOPROLOL TARTRATE 25 MG TABLET (FP) PO SCH ×2 (10:05→22:23)
[2022-01-22] MEDS: DOCUSATE SODIUM 100 MG CAPSULE (FP) PO SCH (10:05)
[2022-01-22] MEDS: APIXABAN 5 MG TABLET PO SCH ×2 (10:05→22:22)
[2022-01-22] MEDS: NYSTATIN POWDER 100,000 UNITS/GM - 15 GM TOPICAL POWDER TP SCH ×2 (10:06→22:34)
[2022-01-22] MEDS: LOSARTAN POTASSIUM 25 MG TABLET PO SCH ×2 (11:00→11:09)
[2022-01-22] MEDS ORDERED: ACETAMINOPHEN 325 MG TABLET (FP) PO PRN (16:55)
[2022-01-22] MEDS: traZODone HCL 50 MG TABLET (FP) PO SCH (22:22)
[2022-01-22] MEDS: hydrOXYzine HCL 10 MG/5 ML LIQUID BULK BOTTLE PO SCH (22:22)
[2022-01-23] MEDS ORDERED: cefTRIAXone SODIUM 1 GM VIAL ONE (09:16)
[2022-01-23] MEDS ORDERED: DEXTROSE 5%-WATER - 50 ML IVPB ONE (09:17)
[2022-01-23] MEDS: LOSARTAN POTASSIUM 25 MG TABLET PO SCH (09:19)
[2022-01-23] MEDS: DOCUSATE SODIUM 100 MG CAPSULE (FP) PO SCH (09:19)
[2022-01-23] MEDS: FUROSEMIDE 40 MG/4 ML INJECTABLE VIAL IVPUSH SCH (09:19)
[2022-01-23] MEDS: POLYETHYLENE GLYCOL (HEALTHYLAX) 3350 17 GM PACKET PO SCH (09:19)
[2022-01-23] MEDS: METOPROLOL TARTRATE 25 MG TABLET (FP) PO SCH ×2 (09:19→21:51)
[2022-01-23] MEDS: APIXABAN 5 MG TABLET PO SCH ×2 (09:19→21:57)
[2022-01-23] MEDS: NYSTATIN POWDER 100,000 UNITS/GM - 15 GM TOPICAL POWDER TP SCH ×2 (09:20→21:52)
[2022-01-23] MEDS: CEFTRIAXONE 1 GM in DEXTROSE 5%-WATER - 50 ML IVPB SCH (09:20)
[2022-01-23] MEDS: PANTOPRAZOLE SODIUM 40 MG VIAL IVPUSH SCH (09:20)
[2022-01-23] MEDS: traZODone HCL 50 MG TABLET (FP) PO SCH (21:51)
[2022-01-23] MEDS: hydrOXYzine HCL 10 MG/5 ML LIQUID BULK BOTTLE PO SCH (21:51)
[2022-01-24] MEDS ORDERED: cefTRIAXone SODIUM 1 GM VIAL ONE (09:11)
[2022-01-24] MEDS ORDERED: DEXTROSE 5%-WATER - 50 ML IVPB ONE (09:11)
[2022-01-24] MEDS: METOPROLOL TARTRATE 25 MG TABLET (FP) PO SCH (09:35)
[2022-01-24] MEDS: LOSARTAN POTASSIUM 25 MG TABLET PO SCH (09:35)
[2022-01-24] MEDS: DOCUSATE SODIUM 100 MG CAPSULE (FP) PO SCH ×2 (09:35→09:52)
[2022-01-24] MEDS: POLYETHYLENE GLYCOL (HEALTHYLAX) 3350 17 GM PACKET PO SCH ×2 (09:35→09:52)
[2022-01-24] MEDS: APIXABAN 5 MG TABLET PO SCH ×3 (09:35→21:28)
[2022-01-24] MEDS: CEFTRIAXONE 1 GM in DEXTROSE 5%-WATER - 50 ML IVPB SCH (09:36)
[2022-01-24] MEDS: PANTOPRAZOLE SODIUM 40 MG VIAL IVPUSH SCH (09:38)
[2022-01-24] MEDS: FUROSEMIDE 40 MG/4 ML INJECTABLE VIAL IVPUSH SCH (09:39)
[2022-01-24] MEDS: NYSTATIN POWDER 100,000 UNITS/GM - 15 GM TOPICAL POWDER TP SCH ×2 (09:40→21:58)
[2022-01-24] MEDS ORDERED: METOPROLOL TARTRATE 25 MG TABLET (FP) PO ONE (10:30)
[2022-01-24] MEDS: traZODone HCL 50 MG TABLET (FP) PO SCH (21:28)
[2022-01-24] MEDS: hydrOXYzine HCL 10 MG/5 ML LIQUID BULK BOTTLE PO SCH (21:28)
[2022-01-24] MEDS: METOPROLOL TARTRATE 50 MG TABLET (FP) PO SCH (21:29)
[2022-01-25 00:39] LABS: URINE APPEARANCE CLEAR; URINE BILIRUBIN NEGATIVE (NEGATIVE); URINE COLOR YELLOW; URINE GLUCOSE (UA) NEGATIVE (NEGATIVE); URINE KETONE TRACE (NEGATIVE); URINE LEUK ESTERASE NEGATIVE (NEGATIVE); URINE NITRITE NEGATIVE (NEGATIVE); URINE PROTEIN TRACE (NEGATIVE); URINE UROBILINOGEN 0.2 mg/dL (0.2-1.0)
[2022-01-25] MEDS ORDERED: cefTRIAXone SODIUM 1 GM VIAL ONE (09:50)
[2022-01-25] MEDS ORDERED: DEXTROSE 5%-WATER - 50 ML IVPB ONE (09:50)
[2022-01-25] MEDS ORDERED: FUROSEMIDE 40 MG TABLET (FP) PO SCH (10:00)
[2022-01-25] MEDS: DOCUSATE SODIUM 100 MG CAPSULE (FP) PO SCH (10:20)
[2022-01-25] MEDS: PANTOPRAZOLE SODIUM 40 MG VIAL IVPUSH SCH (10:20)
[2022-01-25] MEDS: APIXABAN 5 MG TABLET PO SCH ×2 (10:20→10:25)
[2022-01-25] MEDS: LOSARTAN POTASSIUM 25 MG TABLET PO SCH (10:20)
[2022-01-25] MEDS: METOPROLOL TARTRATE 50 MG TABLET (FP) PO SCH (10:20)
[2022-01-25] MEDS: POLYETHYLENE GLYCOL (HEALTHYLAX) 3350 17 GM PACKET PO SCH (10:20)
[2022-01-25] MEDS: CEFTRIAXONE 1 GM in DEXTROSE 5%-WATER - 50 ML IVPB SCH (10:21)
[2022-01-25] MEDS: NYSTATIN POWDER 100,000 UNITS/GM - 15 GM TOPICAL POWDER TP SCH (10:21)
[2022-01-25 11:41] LABS: HEMOGLOBIN 13.5 GM/dL (10.7-15.3); MCH 32.3 pg (25.7-33.7); MEAN CELL VOLUME 97.8 fl (80-96); MEAN PLT VOLUME 8.6 fl (7.5-11.1); PLATELET COUNT 233 10^3/uL (134-434); RBC 4.19 M/mm3 (3.60-5.2); RDW 15.5 % (11.6-15.6)
[2022-01-25 12:09] LABS: BLOOD UREA NITROGEN 27.5 mg/dL (7-18); CALCIUM 8.6 mg/dL (8.5-10.1)
[2022-01-25 12:10] LABS: ALBUMIN 2.9 g/dl (3.4-5.0)
[2022-01-25 12:12] LABS: CREATININE 1.3 mg/dL (0.55-1.3)
[2022-01-25 12:14] LABS: BILIRUBIN,TOTAL 0.4 mg/dL (0.2-1); TOT PROT 7.8 g/dl (6.4-8.2)
[2022-01-25 15:29] VITALS: PULSE 84
[2022-01-25 18:22] VITALS: BP 126/89; TEMP 98.4
[2022-01-25 22:23] VITALS: BMI 40.2
== END 2022-01-25 19:07 | disposition home or self-care (01) | DRG 291 ==
LOC: JER 11:11 → JERBED 13:57 → J4W 01-21 03:21
PROVIDERS: ADMIT Internal Medicine; ATTEND Internal Medicine
DX: I11.0 Hypertensive heart disease with heart failure (principal); I50.33 Acute on chronic diastolic (congestive) heart failure; I48.19 Other persistent atrial fibrillation; N39.0 Urinary tract infection, site not specified; N17.9 Acute kidney failure, unspecified; I25.10 Atherosclerotic heart disease of native coronary artery without angina pectoris; E78.5 Hyperlipidemia, unspecified; M48.061 Spinal stenosis, lumbar region without neurogenic claudication; H40.9 Unspecified glaucoma; I16.0 Hypertensive urgency; K59.00 Constipation, unspecified; B96.20 Unspecified Escherichia coli [E. coli] as the cause of diseases classified elsewhere; K21.9 Gastro-esophageal reflux disease without esophagitis; Z87.11 Personal history of peptic ulcer disease; Z96.652 Presence of left artificial knee joint; Z85.038 Personal history of other malignant neoplasm of large intestine
CPT/HCPCS: 36415; 70450-TC; 71045-TC-FY; 71046-TC-FY; 71275-TC; 76775-TC; 80053; 80061; 81003; 82436; 82570; 83036; 83735; 83880; 84100; 84132; 84133; 84300; 84443; 84484; 84540; 85025; 85027; 85610; 85730; 87086; 87186; 93005; 93010; 93306-TC; 97116-GP; 97162-GP; 99285-25; C9803-CS; Q9967; U0003; U0005